=== PATIENT | female | born 1930 | race Caucasian/White ===

== ENCOUNTER 2018-02-05 23:09 | Inpatient (IN) | payer OTHER ==
--- NOTE | 2018-02-05 23:33 | PDOC ---
History of Present Illness - General History Source: Long Term Records <Axel Barroso - Last Filed: 02/06/18 00:42> - General History Source: Long Term Records Exam Limitations: Dementia - History of Present Illness Initial Comments: 02/06/18 00:00 The patient is a year old female with a significant PMH of CVA, dementia, and hyperlipidemia, and prior falls who presents to the emergency department from [facility] with right hip pain. The patient is unable to provide history secondary to dementia but she presents with imaging paperwork from [facility] which reads acutely displaced and angulated right proximal femoral diaphyseal fracture. High grade osteoarthritis of the right hip. Allergies: NKA Past surgical history: None reported Social history: No reported cigarette, alcohol, or drug use. PCP: Dr. Barrie Paris <Cliff Renae - Last Filed: 02/06/18 03:32> - General Chief Complaint: Pain Stated Complaint: HIP PAIN Time Seen by Provider: 02/05/18 23:30 Past History - Past Medical History Anemia: Yes Cardiac Disorders: (Bradycardia) CVA: Yes Dementia: Yes GI Disorders: Yes (diverticulitis) HTN: Yes Hypercholesterolemia: Yes - Surgical History Abdominal Surgery: No - Immunization History Td Vaccination: Yes TDAP Vaccination: Yes Immunization Up to Date: Yes - Suicide/Smoking/Psychosocial Hx Smoking Status: No Smoking History: Never smoked Number of Cigarettes Smoked Daily: 0 <Axel Barroso - Last Filed: 02/06/18 00:42> <Cliff Renae - Last Filed: 02/06/18 03:32> - Past Medical History Allergies/Adverse Reactions: Allergies Allergy/AdvReac Type Severity Reaction Status Date / Time No Known Allergies Allergy Verified 02/05/18 23:25 Home Medications: Ambulatory Orders Acetaminophen [Tylenol] 1,000 mg PO BID 02/05/18 Albuterol 2.5/Ipratropium 0.5 [Duoneb -] 1 neb IH QID 02/05/18 Aspirin 81 mg PO DAILY 02/05/18 Budesonide [Pulmicort 0.5 mg Nebulizer -] 1 neb NEB BID 02/05/18 Cholecalciferol (Vitamin D3) [Vitamin D3 -] 1,000 unit PO DAILY 02/05/18 Dextran 70/Hypromellose [Artificials Tears Drops] 1 drop OU BID 02/05/18 Docusate Sodium [Colace -] 300 mg PO HS 02/05/18 Ranitidine HCl [Zantac] 150 mg PO DAILY 02/05/18 Review of Systems - Review of Systems Able to Perform ROS?: No <Cliff Renae - Last Filed: 02/06/18 03:32> *Physical Exam - Physical Exam Comments: 02/06/18 00:45 GENERAL: Well developed, well nourished. Awake and alert. No acute distress. HEENT: Normocephalic, atraumatic. PERRLA, EOMI. No conjunctival pallor. Sclera are non- icteric. Moist mucous membranes. Oropharynx is clear. NECK: Supple. Full ROM. No JVD. Carotid pulses 2+ and symmetric, without bruits. No thyromegaly. No lymphadenopathy. CARDIOVASCULAR: Regular rate and rhythm. No murmurs, rubs, or gallops. Distal pulses are 2+ and symmetric. PULMONARY: No evidence of respiratory distress. Lungs clear to auscultation bilaterally. No wheezing, rales or rhonchi. ABDOMINAL: Soft. Non-tender. Non-distended. No rebound or guarding. No organomegaly. Normoactive bowel sounds. MUSCULOSKELETAL: Internal rotation of right leg. No extremity tenderness. No CVA tenderness. EXTREMITIES: No cyanosis. No clubbing. No edema. No calf tenderness. SKIN: Warm and dry. Normal capillary refill. No rashes. No jaundice. NEUROLOGICAL: Alert, awake, appropriate. Cranial nerves 2-12 intact. No deficits to light touch and temperature in face, upper extremities and lower extremities. No motor deficits in the in face, upper extremities and lower extremities. Normoreflexic in the upper and lower extremities. Normal speech. Toes are downgoing bilaterally. Gait is normal without ataxia. PSYCHIATRIC: Cooperative. Good eye contact. Appropriate mood and affect. <Cliff Renae - Last Filed: 02/06/18 03:32> Heart Score/ECG Review #1 02/06/18 03:31 Vent rate 93 bpm Normal sinus rhythm Left ventricular hypertrophy with repolarization abnormality. Abnormal ECG <Cliff Renae - Last Filed: 02/06/18 03:32> ED Treatment Course - LABORATORY CBC & Chemistry Diagram: 02/05/18 23:45 02/05/18 23:45 <Axel Barroso - Last Filed: 02/06/18 00:42> - LABORATORY CBC & Chemistry Diagram: 02/05/18 23:45 02/05/18 23:45 - ADDITIONAL ORDERS Additional order review: 02/05/18 23:45 RBC 4.13 MCV 97.0 H MCHC 34.3 RDW 13.0 MPV 8.3 Neutrophils % 78.4 D Lymphocytes % 7.4 L D Monocytes % 13.8 H Eosinophils % 0.1 D Basophils % 0.3 <Cliff Renae - Last Filed: 02/06/18 03:32> Medical Decision Making - Medical Decision Making 02/06/18 00:42 Dr. Barroso: The scribe's documentation has been prepared under my direction and personally reviewed by me in its entirery. I confirm that the note above accurately reflects all work, treatment, procedures, and medical decision making performed by me. reported from [place] pt has a right proximal femur fracture. Pt to be admitted to [facility] for evaluation and treatment <Axel Barroso - Last Filed: 02/06/18 00:42> *DC/Admit/Observation/Transfer - Discharge Dispostion Admit: Yes <Axel Barroso - Last Filed: 02/06/18 00:42> - Attestations Scribe Attestion: 02/06/18 00:00 Documentation prepared by Cliff Renae, acting as chief medical physicist for Axel Barroso DO. <Cliff Renae - Last Filed: 02/06/18 03:32> Diagnosis at time of Disposition: Femur fracture, right - Discharge Dispostion Condition at time of disposition: Stable - Referrals Referrals: Barrie Paris [Primary Care Provider] -
[2018-02-05 23:49] LABS: BASO % 0.3 % (0-2.0); EOS % 0.1 % (0-4.5); HEMOGLOBIN 13.7 GM/dL (10.7-15.3); LYMPH % 7.4 % (8-40); MCH 33.2 pg (25.7-33.7); MCHC 34.3 g/dl (32.0-36.0); MEAN PLT VOLUME 8.3 fl (7.5-11.1); MONO % 13.8 % (3.8-10.2); NEUT % 78.4 % (42.8-82.8); PLATELET COUNT 246 K/MM3 (134-434); RBC 4.13 M/mm3 (3.60-5.2); WHITE BLOOD COUNT 14.6 K/mm3 (4.0-10.0)
[2018-02-06 00:02] LABS: INR 1.05 (0.82-1.09); PROTHROMBIN TIME (PATIENT) 11.9 SEC (9.98-11.88)
[2018-02-06 00:24] LABS: ALBUMIN 2.9 g/dl (3.4-5.0); ALK PHOS 49 U/L (45-117); ANION GAP 12 (8-16); BILIRUBIN,TOTAL 0.5 mg/dL (0.2-1.0); BLOOD UREA NITROGEN 10 mg/dL (7-18); CALCIUM 9.1 mg/dL (8.5-10.1); CHLORIDE 102 mmol/L (98-107); CO2 25 mmol/L (21-32); CREATININE 0.7 mg/dL (0.55-1.02); GLUCOSE,RANDOM 165 mg/dL (74-106); POTASSIUM 4.1 mmol/L (3.5-5.1); SGOT/AST 32 U/L (15-37); SGPT/ALT 28 U/L (12-78); SODIUM 139 mmol/L (136-145); TOT PROT 6.6 g/dl (6.4-8.2)
[2018-02-06 01:12] VITALS: BMI 25.4
[2018-02-06 01:14] LABS: URINE APPEARANCE CLOUDY; URINE BILIRUBIN NEGATIVE (NEGATIVE); URINE BLOOD NEGATIVE (NEGATIVE); URINE COLOR DKYELLOW; URINE GLUCOSE (UA) NEGATIVE (NEGATIVE); URINE KETONE TRACE (NEGATIVE); URINE LEUK ESTERASE NEGATIVE (NEGATIVE); URINE NITRITE NEGATIVE (NEGATIVE); URINE PROTEIN NEGATIVE (NEGATIVE); URINE UROBILINOGEN NEGATIVE mg/dL (0.2-1.0)
[2018-02-06] MEDS ORDERED: SODIUM CHLORIDE 250 ML IV STA (01:18)
[2018-02-06] MEDS ORDERED: SODIUM CHLORIDE 1,000 ML IV SCH (02:00)
--- NOTE | 2018-02-06 02:20 | HP ---
CHIEF COMPLAINT: right femur fracture PCP: [facility] HISTORY OF PRESENT ILLNESS: This is an 87 year old female with a significant past medical history of advanced Alzheimers disease and osteoporosis who presented to the ED from [facility] with an xray report revealing right femur fracture. Unknown etiology of fracture. Pt is nonverbal at baseline. ER course was notable for: (1) Xray with R proximal femur fracture (2) Hgb 13.7, WBC 14.6 (3) Lactic acid 2.8 Recent Travel: none PAST MEDICAL HISTORY: Alzheimer's Dementia, advanced, Parkinson's disease, CVA, HTN, HLD, PVD, COPD, falls, osteoporosis, osteoarthritis, GERD, diverticulitis PAST SURGICAL HISTORY: unk-B/L knee surgical scars noted Social History: Smoking: unk Alcohol: unk Drugs: unk Family History: unk Allergies No Known Allergies Allergy (Verified 02/05/18 23:25) HOME MEDICATIONS: 3 Medication Instructions Recorded Acetaminophen [Tylenol] 1,000 mg PO BID 02/05/18 Albuterol 2.5/Ipratropium 0.5 1 neb IH QID 02/05/18 [Duoneb -] Aspirin 81 mg PO DAILY 02/05/18 Budesonide [Pulmicort 0.5 mg 1 neb NEB BID 02/05/18 Nebulizer -] Cholecalciferol (Vitamin D3) 1,000 unit PO DAILY 02/05/18 [Vitamin D3 -] Dextran 70/Hypromellose 1 drop OU BID 02/05/18 [Artificials Tears Drops] Docusate Sodium [Colace -] 300 mg PO HS 02/05/18 Ranitidine HCl [Zantac] 150 mg PO DAILY 02/05/18 REVIEW OF SYSTEMS--obtained from limited [place] chart CONSTITUTIONAL: Absent: fever, chills, diaphoresis, generalized weakness, malaise, loss of appetite, weight change HEENT: Absent: rhinorrhea, nasal congestion, throat pain, throat swelling, difficulty swallowing, mouth swelling, ear pain, eye pain, visual changes CARDIOVASCULAR: Absent: chest pain, syncope, palpitations, irregular heart rate, lightheadedness , peripheral edema RESPIRATORY: Absent: cough, shortness of breath, dyspnea with exertion, orthopnea, wheezing, stridor, hemoptysis GASTROINTESTINAL: Absent: abdominal pain, abdominal distension, nausea, vomiting, diarrhea, constipation, melena, hematochezia GENITOURINARY: Absent: dysuria, frequency, urgency, hesitancy, hematuria, flank pain, genital pain MUSCULOSKELETAL: Present: right leg shortened and externally rotated Absent: myalgia, arthralgia, joint swelling, back pain, neck pain SKIN: Absent: rash, itching, pallor HEMATOLOGIC/IMMUNOLOGIC: Absent: easy bleeding, easy bruising, lymphadenopathy, frequent infections ENDOCRINE: Absent: unexplained weight gain, unexplained weight loss, heat intolerance, cold intolerance NEUROLOGIC: Absent: headache, focal weakness or paresthesias, dizziness, unsteady gait, seizure, mental status changes, bladder or bowel incontinence PSYCHIATRIC: Absent: anxiety, depression, suicidal or homicidal ideation, hallucinations. PHYSICAL EXAMINATION Vital Signs - 24 hr 3 02/05/18 02/06/18 23:15 01:10 Temperature 99.7 F H Pulse Rate 81 Respiratory 20 Rate Blood Pressure 141/68 O2 Sat by Pulse 96 Oximetry (%) GENERAL: disoriented, unable to follow commands, in no acute distress. HEAD: Normal with no signs of trauma. EYES: eyes closed, squeeses tightly shut when attempt made to open them. Crusting noted to eyelashes. EARS, NOSE, THROAT: Ears normal, nares patent, oropharynx clear without exudates. Moist mucous membranes. NECK: Normal range of motion, supple without lymphadenopathy, JVD, or masses. LUNGS: Breath sounds equal, clear to auscultation bilaterally. No wheezes, and no crackles. No accessory muscle use. HEART: Regular rate and rhythm, normal S1 and S2 without murmur, rub or gallop. ABDOMEN: Soft, nontender, not distended, normoactive bowel sounds, no guarding, no rebound, no masses. No hepatomegaly or splenomegaly. MUSCULOSKELETAL: Normal range of motion at all joints. No bony deformities or tenderness. No CVA tenderness. right leg shortened and externally rotated UPPER EXTREMITIES: 2+ pulses, warm, well-perfused. No cyanosis. No clubbing. No peripheral edema. LOWER EXTREMITIES: 2+ pulses, warm, well-perfused. No calf tenderness. No peripheral edema. NEUROLOGICAL: Cranial nerves II-XII intact. Normal speech. Normal gait. PSYCHIATRIC: Cooperative. Good eye contact. Appropriate mood and affect. SKIN: Warm, dry, normal turgor, no lesions noted, normal capillary refill. right inframammary fold noted with erythematous rash Laboratory Results - last 24 hr 3 02/05/18 02/05/18 02/05/18 23:40 23:45 23:45 WBC 14.6 H D RBC 4.13 Hgb 13.7 Hct 40.0 MCV 97.0 H MCH 33.2 MCHC 34.3 RDW 13.0 Plt Count 246 D MPV 8.3 Neutrophils % 78.4 D Lymphocytes % 7.4 L D Monocytes % 13.8 H Eosinophils % 0.1 D Basophils % 0.3 PT with INR 11.90 H INR 1.05 Sodium Potassium Chloride Carbon Dioxide Anion Gap BUN Creatinine Creat Clearance w eGFR Random Glucose Lactic Acid 2.8 H* Calcium Total Bilirubin AST ALT Alkaline Phosphatase Total Protein Albumin Urine Color Urine Appearance Urine pH Ur Specific Lykens Urine Protein Urine Glucose (UA) Urine Ketones Urine Blood Urine Nitrite Urine Bilirubin Urine Urobilinogen Ur Leukocyte Esterase Blood Type Antibody Screen 3 02/05/18 02/05/18 02/06/18 23:45 23:50 01:05 WBC RBC Hgb Hct MCV MCH MCHC RDW Plt Count MPV Neutrophils % Lymphocytes % Monocytes % Eosinophils % Basophils % PT with INR INR Sodium 139 Potassium 4.1 Chloride 102 Carbon Dioxide 25 Anion Gap 12 BUN 10 Creatinine 0.7 Creat Clearance w eGFR > 60 Random Glucose 165 H Lactic Acid Calcium 9.1 Total Bilirubin 0.5 D AST 32 ALT 28 Alkaline Phosphatase 49 Total Protein 6.6 Albumin 2.9 L Urine Color Dkyellow Urine Appearance Cloudy Urine pH 5.0 Ur Specific Lyk[place] 1.020 Urine Protein Negative Urine Glucose (UA) Negative Urine Ketones Trace H Urine Blood Negative Urine Nitrite Negative Urine Bilirubin Negative Urine Urobilinogen Negative Ur Leukocyte Esterase Negative Blood Type A POSITIVE Antibody Screen Negative Radiology reports right hip and pelvis official read pending, Proximal humerus fracture noted with dislocation CXR-official read pending, no obvious infiltrates or effusions noted by me ASSESSMENT/PLAN: 87yF with PMH Alzheimer's Dementia, advanced, Parkinson's disease, CVA, HTN, HLD , PVD, COPD, falls, osteoporosis, osteoarthritis, GERD, diverticulitis presented to the ED with right femur fracture. Right femur fracture - ortho consult in am - tylenol standing as pt unable to make needs known - NPO for now - start heparin for DVT PPX if not going to OR - hold ASA lactic acidosis/leukocytosis - NS bolus 250cc x 1 then 100cc/hr - repeat lactic acid in am leukocytosis - likely reactive due to fracture, repeat in am COPD - Cont home duonebs and pulmicort HTN/HLD - off all meds, monitor BP GERD - cont zantac DVT PPX - start heparin if not going to OR FEN - NS 250mL bolus x 1 then 100cc/hr - bmp in am - NPO for now, puree diet/thin liquids if not going to OR right away. Dispo: Pt currently requires inpatient management of her emergent condition. Visit type - Emergency Visit Emergency Visit: Yes ED Registration Date: 02/05/18 Care time: The patient presented to the Emergency Department on the above date and was hospitalized for further evaluation of their emergent condition. - New Patient This patient is new to me today: Yes Date on this admission: 02/06/18 - Critical Care Critical Care patient: No Hospitalist Screening - Colonoscopy Questionnaire Colonoscopy Questionnaire: Colonoscopy Questionnaire - Patient: 50 - 75 years old and never had a screening colonoscopy: No History of colon or rectal polyps, or CA: No History of IBD, Crohn's disease or UC: No History of abdominal radiation therapy as a child: No - Relative: 1 with colon or rectal CA, or polyps at age 60 or younger: Unknown Colon or rectal CA diagnosed at age 45 or younger: Unknown Multiple relatives with colon or rectal CA: Unknown - Outcome: Screening Result: Negative Screen
[2018-02-06] MEDS: ACETAMINOPHEN 325 MG TABLET (FP) PO SCH ×5 (03:02→21:54)
[2018-02-06 07:34] LABS: ANION GAP 12 (8-16); BLOOD UREA NITROGEN 9 mg/dL (7-18); CALCIUM 8.3 mg/dL (8.5-10.1); CHLORIDE 105 mmol/L (98-107); CO2 25 mmol/L (21-32); CREATININE 0.6 mg/dL (0.55-1.02); GLUCOSE,RANDOM 138 mg/dL (74-106); PHOSPHOROUS 2.9 mg/dL (2.5-4.9); POTASSIUM 4.2 mmol/L (3.5-5.1); SODIUM 142 mmol/L (136-145)
[2018-02-06] MEDS ORDERED: PT OWN MED DRAWER 7, Y5N ONE ×3 (08:06→21:34)
[2018-02-06] MEDS: ALBUTEROL SO4 2.5/IPRATROPIUM 0.5 INH SOL 3 ML VIAL.NEB. NEB SCH ×4 (08:07→22:10)
--- NOTE | 2018-02-06 09:31 | CONSULT ---
Consult - text type - Consultation Consultation Note: FULL CONSULT DICTATED IMP:RIGHT SUBTROCH FX ABOUT A TKR WITH A SHORT BRODY PLAN: --> OR FOR ORIF. I WILL DISCUSS CASE WITH PROXY.
[2018-02-06] MEDS: BUDESONIDE 0.5 MG/2 ML INH SUSP VIAL NEB SCH ×2 (10:30→22:10)
--- NOTE | 2018-02-06 10:49 | EKG ---
Test Reason : Blood Pressure : / mmHG Vent. Rate : 093 BPM Atrial Rate : 093 BPM P-R Int : 178 ms QRS Dur : 094 ms QT Int : 344 ms P-R-T Axes : 042 002 129 degrees QTc Int : 427 ms NORMAL SINUS RHYTHM LEFT VENTRICULAR HYPERTROPHY WITH REPOLARIZATION ABNORMALITY ABNORMAL ECG WHEN COMPARED WITH ECG OF 15-MAR-2013 19:22, VENT. RATE HAS INCREASED BY 36 BPM NONSPECIFIC T WAVE ABNORMALITY NO LONGER EVIDENT IN ANTERIOR LEADS T WAVE INVERSION NOW EVIDENT IN LATERAL LEADS Confirmed by JENNIFER ROGEL, CAIT ([id number]) on 02/06/2018 10:48:57 AM Referred By: Confirmed By:CAIT RODRIGUEZ MD
[2018-02-06] MEDS: RANITIDINE HCL 150 MG TABLET (FP) PO SCH (10:58)
[2018-02-06] MEDS: CHOLECALCIFEROL (VITAMIN D3) 1,000 UNIT TABLET (FP) PO SCH (10:58)
[2018-02-06] MEDS: NYSTATIN POWDER 100,000 UNITS/GM - 15 GM TOPICAL POWDER TP SCH ×2 (10:59→21:54)
[2018-02-06] MEDS: ARTIFICIAL TEARS (POLYVINYL ALCOHOL 1.4%) OPTH DROPS OU SCH ×2 (11:01→21:53)
[2018-02-06] MEDS ORDERED: oxyCODONE HCL 5 MG TABLET PO PRN (11:27)
--- NOTE | 2018-02-06 11:27 | PN ---
Progress Note (short form) - Note Progress Note: Events noted Pt admitted from [facility] for fracture right hip Vital Signs - 24 hr 02/05/18 02/06/18 02/06/18 23:15 01:10 02:00 Temperature 99.7 F H 99.5 F Pulse Rate 81 105 H Pulse Rate [ Right] Respiratory 20 18 Rate Blood Pressure 141/68 132/59 Blood Pressure [Right Calf] O2 Sat by Pulse 96 96 Oximetry (%) 02/06/18 02/06/18 02/06/18 02:42 03:30 05:42 Temperature 99.5 F 98.3 F Pulse Rate 113 H 87 Pulse Rate [ 92 H Right] Respiratory 16 18 20 Rate Blood Pressure 132/59 112/71 Blood Pressure 105/66 [Right Calf] O2 Sat by Pulse 95 Oximetry (%) Current Medications Generic Name Dose Route Start Last Admin Trade Name Freq PRN Reason Stop Dose Admin Acetaminophen 650 mg 02/06/18 01:45 02/06/18 05:51 Tylenol - PO Not Given TID BRANDO Albuterol/Ipratropium 1 amp 02/06/18 08:00 02/06/18 08:07 Duoneb - NEB 1 amp RQID BRANDO Administration Artificial Tears 1 drop 02/06/18 10:00 02/06/18 11:01 Artificial Tears OU 1 drop BID BRANDO Administration Budesonide 1 amp 02/06/18 10:00 02/06/18 10:30 Pulmicort 0.5 Mg Nebulizer - NEB 1 amp BID BRANDO Administration Cholecalciferol 1,000 unit 02/06/18 10:00 02/06/18 10:58 Vitamin D3 - PO Not Given DAILY BRANDO Docusate Sodium 300 mg 02/06/18 22:00 Colace - PO HS BRANDO Sodium Chloride 1,000 mls @ 100 mls/hr 02/06/18 02:00 02/06/18 02:30 Normal Saline - IV 100 mls/hr ASDIR BRANDO Administration Morphine Sulfate 1 mg 02/06/18 01:24 Morphine Sulfate IVPUSH Q4H PRN PAIN LEVEL 7 - 10 Nystatin 1 applic 02/06/18 10:00 02/06/18 10:59 Nystop Powder - TP 1 applic BID BRANDO Administration Oxycodone HCl 5 mg 02/06/18 11:27 Roxicodone - PO Q6H PRN PAIN LEVEL 6-10 Ranitidine HCl 150 mg 02/06/18 10:00 02/06/18 10:58 Zantac - PO Not Given DAILY [facility] Laboratory Results - last 24 hr 02/05/18 02/05/18 02/05/18 23:40 23:45 23:45 WBC 14.6 H D RBC 4.13 Hgb 13.7 Hct 40.0 MCV 97.0 H MCH 33.2 MCHC 34.3 RDW 13.0 Plt Count 246 D MPV 8.3 Neutrophils % 78.4 D Lymphocytes % 7.4 L D Monocytes % 13.8 H Eosinophils % 0.1 D Basophils % 0.3 PT with INR 11.90 H INR 1.05 Sodium Potassium Chloride Carbon Dioxide Anion Gap BUN Creatinine Creat Clearance w eGFR Random Glucose Lactic Acid 2.8 H* Calcium Phosphorus Magnesium Total Bilirubin AST ALT Alkaline Phosphatase Total Protein Albumin Urine Color Urine Appearance Urine pH Ur Specific Maxwell Urine Protein Urine Glucose (UA) Urine Ketones Urine Blood Urine Nitrite Urine Bilirubin Urine Urobilinogen Ur Leukocyte Esterase Blood Type Antibody Screen 02/05/18 02/05/18 02/06/18 23:45 23:50 01:05 WBC RBC Hgb Hct MCV MCH MCHC RDW Plt Count MPV Neutrophils % Lymphocytes % Monocytes % Eosinophils % Basophils % PT with INR INR Sodium 139 Potassium 4.1 Chloride 102 Carbon Dioxide 25 Anion Gap 12 BUN 10 Creatinine 0.7 Creat Clearance w eGFR > 60 Random Glucose 165 H Lactic Acid Calcium 9.1 Phosphorus Magnesium Total Bilirubin 0.5 D AST 32 ALT 28 Alkaline Phosphatase 49 Total Protein 6.6 Albumin 2.9 L Urine Color Dkyellow Urine Appearance Cloudy Urine pH 5.0 Ur Specific Maxwell 1.020 Urine Protein Negative Urine Glucose (UA) Negative Urine Ketones Trace H Urine Blood Negative Urine Nitrite Negative Urine Bilirubin Negative Urine Urobilinogen Negative Ur Leukocyte Esterase Negative Blood Type A POSITIVE Antibody Screen Negative 02/06/18 02/06/18 02/06/18 02:05 06:30 06:30 WBC RBC Hgb Hct MCV MCH MCHC RDW Plt Count MPV Neutrophils % Lymphocytes % Monocytes % Eosinophils % Basophils % PT with INR INR Sodium 142 Potassium 4.2 Chloride 105 Carbon Dioxide 25 Anion Gap 12 BUN 9 Creatinine 0.6 Creat Clearance w eGFR Random Glucose 138 H Lactic Acid 2.6 H* 2.0 Calcium 8.3 L Phosphorus 2.9 Magnesium 2.0 Total Bilirubin AST ALT Alkaline Phosphatase Total Protein Albumin Urine Color Urine Appearance Urine pH Ur Specific Maxwell Urine Protein Urine Glucose (UA) Urine Ketones Urine Blood Urine Nitrite Urine Bilirubin Urine Urobilinogen Ur Leukocyte Esterase Blood Type Antibody Screen S1 S2 RRR Sleepy Clear Abd- soft , NT Rt leg shortened,turned outwards A/P Dementia- Alzhemer's COPD Fracture right hip -- continue with nebs -- spoke with son-- she is baseline-- sleepy, dementia, bedbound-- he agrees for surgery for pain control -- check Echo -- Cardiology eval for clearance -- Heparin sc for DVT Px
--- NOTE | 2018-02-06 13:26 | CONS ---
DATE OF CONSULTATION: 02/06/2018 HISTORY OF PRESENT ILLNESS: Patient is an 87-year-old demented with severe OMS patient found to have a short and externally rotated femur in the halfway. Was transferred to the hospital. Patient is DNR. PAST MEDICAL HISTORY: Significant for bilateral total knee replacements and revisions, also right reverse shoulder replacement. Patient is a complete nonambulator and follows no commands. PHYSICAL EXAMINATION: Extremities: She has a great deal of pain with passive range of motion of her right hip. Good motion in the ankle and toes. Otherwise neurovascularly intact. Calf is soft, nontender. Mild swelling of the right thigh. IMAGING: X-rays revealed a right subtrochanteric femur fracture above a revision total knee replacement with a small stem on the femoral component. IMPRESSION: Right subtrochanteric fracture above a stemmed total knee replacement. RECOMMENDATIONS: Risks, benefits, alternatives discussed with sister and with son. They have agreed to go forward with operative intervention, but they want minimalistic procedure as possible. I therefore recommend that the shortest long Gamma nail to be applied to fixate the fracture. They realize that this could allow a stress fracture between the tip of the femoral nail and the upper tip of the total knee replacement. Ideally, I would bridge this with a bridging plate to decrease the stress riser there. However, family again wants the minimalistic procedure, just wants whatever we can do now. If it breaks at a later date, we will have to deal with it then. I therefore will book that procedure in the upcoming days. Patient will be booked once medically optimized. GIORGIO WATT M.D. [id number]
--- NOTE | 2018-02-06 16:13 | CON.CARD ---
Consult Consult Specialty:: Cardiology Referred by:: Dr. Watson Reason for Consultation:: Preop cardiac evaluation prior to hip surgery - History of Present Illness Chief Complaint: Hip fracture History of Present Illness: 87 year old woman with a h/o advanced dementia, multiple prior "mini strokes" as per pts son, COPD, bedbound, admitted from [place] for R hip fracture. Pt is planned for surgical stabilization for pain reduction. Pt seen and examined today. Pt minimally responsive. opens eyes to voice. does not follow commands, no coherent speech. moaning. no reported history of c/o chest pain. Pt does have baseline intermittent sob due to COPD. History was obtained from the chart as well as from pts son Trevor over the phone. - History Source History Provided By: Family Member, Medical Record Limitations to Obtaining History: Dementia - Past Medical History OSTEOPATHIC PHYSICIAN: Yes: Alzheimer's, CVA, TIA Pulmonary: Yes: COPD ...: No - Alcohol/Substance Use Hx Alcohol Use: No History of Substance Use: reports: None - Smoking History Smoking history: Never smoked Aproximately how many cigarettes per day: 0 - Social History Usual Living Arrangement: Detention ADL: Support Services History of Recent Travel: No Home Medications - Allergies Allergies/Adverse Reactions: Allergies Allergy/AdvReac Type Severity Reaction Status Date / Time No Known Allergies Allergy Verified 02/05/18 23:25 - Home Medications Home Medications: Ambulatory Orders Acetaminophen [Tylenol] 1,000 mg PO BID 02/05/18 Albuterol 2.5/Ipratropium 0.5 [Duoneb -] 1 neb IH QID 02/05/18 Aspirin 81 mg PO DAILY 02/05/18 Budesonide [Pulmicort 0.5 mg Nebulizer -] 1 neb NEB BID 02/05/18 Cholecalciferol (Vitamin D3) [Vitamin D3 -] 1,000 unit PO DAILY 02/05/18 Dextran 70/Hypromellose [Artificials Tears Drops] 1 drop OU BID 02/05/18 Docusate Sodium [Colace -] 300 mg PO HS 02/05/18 Ranitidine HCl [Zantac] 150 mg PO DAILY 02/05/18 Family Disease History - Family Disease History Family History: Unremarkable Review of Systems - Review of Systems Constitutional: reports: Other (bedbound, dementia) Eyes: reports: No Symptoms HENT: reports: No Symptoms Neck: reports: No Symptoms Cardiovascular: reports: Shortness of Breath Respiratory: reports: SOB Gastrointestinal: reports: No Symptoms Genitourinary: reports: No Symptoms Musculoskeletal: reports: Decreased ROM, Extremity Pain, Joint Pain, Muscle Weakness Neurological: reports: Confusion, Weakness - Risk Factors Known Risk Factors: Yes: Age, Other (multiple prior CVA) Vital Signs: Vital Signs Temperature 98.8 F 02/06/18 14:27 Pulse Rate 83 02/06/18 14:27 Respiratory Rate 20 02/06/18 09:00 Blood Pressure 125/65 02/06/18 14:27 O2 Sat by Pulse Oximetry (%) 95 02/06/18 09:00 Constitutional: Yes: No Distress, Calm Eyes: Yes: Conjunctiva Clear HENT: Yes: Atraumatic, Normocephalic Neck: Yes: Supple Respiratory: Yes: Regular, Diminished, Rhonchi. No: Rales, SOB, Wheezes Gastrointestinal: Yes: Normal Bowel Sounds, Soft. No: Distention, Tenderness Cardiovascular: Yes: Regular Rate and Rhythm. No: Bradycardia, Tachycardia, Pulse Irregular, Gallop, Rub, Varicosities JVD: No Carotid Bruit: No PMI: Non-Displaced Heart Sounds: Yes: S1, S2. No: Split S2, S3, S4, Clicks, Gallop, Rub, Bruit Murmur: Yes: Systolic Murmur, Grade 2. No: Diastolic Murmur Musculoskeletal: Yes: Joint Stiffness, Muscle Weakness Extremities: Yes: Internal Rotation Edema: LLE: Trace, RLE: Trace Peripheral Pulses WNL: Yes Neurological: No: Alert, Oriented Psychiatric: No: Alert, Oriented - Other Data Labs, Other Data: CBC, BMP 02/05/18 23:45 02/06/18 06:30 INR, PTT INR 1.05 (0.82-1.09) 02/05/18 23:45 EKG-NSR 93bpm, LVH with repolarization abnl, nonspecific St abnl, slight ST depression V5, V6,I, aVL Echo: Report Reviewed Imaging - Results Chest X-ray: Report Reviewed, Image Reviewed EKG: Report Reviewed, Image Reviewed Other: Report Reviewed, Image Reviewed Assessment/Plan 87 year old woman with a h/o advanced dementia, multiple prior "mini strokes" as per pts son, COPD, bedbound, admitted from [place] for R hip fracture. Pt is planned for surgical stabilization for pain reduction. Pt seen and examined today. Pt minimally responsive. opens eyes to voice. does not follow commands, no coherent speech. moaning. no reported history of c/o chest pain. Pt does have baseline intermittent sob due to COPD. History was obtained from the chart as well as from pts son Trevor over the phone. Perioperative cardiac risk stratification -Extensive discussion held with pts son Trevor over the phone today. -Pt would be considered a high risk patient for procedures based on age, dementia, multiple prior CVA's and COPD however at this time there is no current absolute cardiac contraindication to going through with the procedure. -EKG shows no acute abnormalities, BP is well controlled without medication, Echo showed grossly normal LV systolic function and no significant valvular abnormalities. There is no additional cardiac testing at this point that would minimize her risk. There is also insufficient time to start and titrate a bblocker and blood pressure is well controlled without medication, would risk intraoperative hypotension to initiate therapy at this time. -Discussed with Trevor that while she is of risk for cardiac or neurologic complications with surgery, the purpose of the surgery is to relieve the significant pain that she is in and improve her quality of life and therefore it would be reasonable to proceed with close intraoperative monitoring. -Dr. Gaxiola's consult appreciated plan is for minimally invasive and minimal surgical time with gamma nail stabilization. -If possible would attempt to avoid large BP shifts intraoperatively -Pt can be monitored on telemetry postoperatively
[2018-02-06] MEDS: SODIUM CHLORIDE 1,000 ML IV SCH ×2 (16:31→21:55)
[2018-02-06] MEDS: morphine SULFATE 4 MG/ML VIAL IVPUSH PRN (16:38)
[2018-02-06] MEDS: DOCUSATE SODIUM 100 MG CAPSULE (FP) PO SCH (21:54)
[2018-02-06] MEDS: HEPARIN NA (PORCINE) 5,000 UNITS/ML 1ML VIAL SQ SCH (21:55)
[2018-02-07] MEDS: ACETAMINOPHEN 325 MG TABLET (FP) PO SCH ×3 (06:35→21:59)
[2018-02-07] MEDS: ALBUTEROL SO4 2.5/IPRATROPIUM 0.5 INH SOL 3 ML VIAL.NEB. NEB SCH ×4 (07:57→20:20)
[2018-02-07 08:17] LABS: BASO % 0.6 % (0-2.0); EOS % 0.9 % (0-4.5); HEMATOCRIT 28.5 % (32.4-45.2); HEMOGLOBIN 9.7 GM/dL (10.7-15.3); LYMPH % 15.8 % (8-40); MCH 33.3 pg (25.7-33.7); MCHC 33.9 g/dl (32.0-36.0); MEAN CELL VOLUME 98.1 fl (80-96); MEAN PLT VOLUME 8.2 fl (7.5-11.1); NEUT % 64.7 % (42.8-82.8); PLATELET COUNT 163 K/MM3 (134-434); RBC 2.91 M/mm3 (3.60-5.2); RDW 13.2 % (11.6-15.6); WHITE BLOOD COUNT 11.5 K/mm3 (4.0-10.0)
[2018-02-07] MEDS: SODIUM CHLORIDE 1,000 ML IV SCH ×2 (09:46→10:40)
[2018-02-07] MEDS: BUDESONIDE 0.5 MG/2 ML INH SUSP VIAL NEB SCH (09:52)
--- NOTE | 2018-02-07 10:22 | PN ---
Progress Note (short form) - Note Progress Note: Pt seen and examined. She has severe dementia. Appears comfortable. RLE is flexed at the hip and the knee. 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 Cardiology note seen. Plan Right hip/femur IM nail/Gamma Nail surgery sunday. Rec NPO after midnight tonight Final medical clearance Hold any anticoagulants
[2018-02-07] MEDS ORDERED: PT OWN MED DRAWER 7, Y5N ONE (10:23)
[2018-02-07] MEDS: HEPARIN NA (PORCINE) 5,000 UNITS/ML 1ML VIAL SQ SCH ×2 (10:38→21:59)
[2018-02-07] MEDS: ARTIFICIAL TEARS (POLYVINYL ALCOHOL 1.4%) OPTH DROPS OU SCH ×2 (10:39→21:59)
[2018-02-07] MEDS: NYSTATIN POWDER 100,000 UNITS/GM - 15 GM TOPICAL POWDER TP SCH ×2 (10:39→22:00)
[2018-02-07] MEDS: CHOLECALCIFEROL (VITAMIN D3) 1,000 UNIT TABLET (FP) PO SCH (10:40)
[2018-02-07] MEDS: RANITIDINE HCL 150 MG TABLET (FP) PO SCH (10:40)
--- NOTE | 2018-02-07 11:50 | PN ---
Progress Note (short form) - Note Progress Note: spoke with Dr Jon Pt is comfortable sleepy spoke with son earlier-- he would rather have the pt be sleepy and not in pain Vital Signs - 24 hr 02/06/18 02/06/18 02/06/18 14:27 21:00 21:59 Temperature 98.8 F 99.7 F H Pulse Rate 83 96 H Respiratory 20 20 Rate Blood Pressure 125/65 147/71 O2 Sat by Pulse 95 Oximetry (%) 02/07/18 02/07/18 05:36 08:00 Temperature 99.1 F 98.8 F Pulse Rate 101 H 90 Respiratory 20 20 Rate Blood Pressure 123/60 116/55 O2 Sat by Pulse 99 Oximetry (%) Current Medications Generic Name Dose Route Start Last Admin Trade Name Freq PRN Reason Stop Dose Admin Acetaminophen 650 mg 02/06/18 01:45 02/07/18 06:35 Tylenol - PO 650 mg TID BRANDO Administration Albuterol/Ipratropium 1 amp 02/06/18 08:00 02/07/18 11:16 Duoneb - NEB 1 amp RQID BRANDO Administration Artificial Tears 1 drop 02/06/18 10:00 02/07/18 10:39 Artificial Tears OU 1 drop BID BRANDO Administration Budesonide 1 amp 02/06/18 10:00 02/07/18 09:52 Pulmicort 0.5 Mg Nebulizer - NEB 1 amp BID BRANDO Administration Cholecalciferol 1,000 unit 02/06/18 10:00 02/07/18 10:40 Vitamin D3 - PO Not Given DAILY BRANDO Docusate Sodium 300 mg 02/06/18 22:00 02/06/18 21:54 Colace - PO 300 mg HS BRANDO Administration Heparin Sodium (Porcine) 5,000 unit 02/06/18 22:00 02/07/18 10:38 Heparin - SQ 5,000 unit BID BRANDO Administration Sodium Chloride 1,000 mls @ 80 mls/hr 02/06/18 11:31 02/07/18 10:40 Normal Saline - IV 80 mls/hr ASDIR BRANDO Administration Ceftriaxone Sodium 1 gm/ 50 mls @ 100 mls/hr 02/07/18 12:00 Dextrose IVPB DAILY BRANDO Morphine Sulfate 1 mg 02/06/18 01:24 02/06/18 16:38 Morphine Sulfate IVPUSH 1 mg Q4H PRN Administration PAIN LEVEL 7 - 10 Nystatin 1 applic 02/06/18 10:00 02/07/18 10:39 Nystop Powder - TP 1 applic BID BRANDO Administration Oxycodone HCl 5 mg 02/06/18 11:27 Roxicodone - PO Q6H PRN PAIN LEVEL 6-10 Ranitidine HCl 150 mg 02/06/18 10:00 02/07/18 10:40 Zantac - PO Not Given DAILY [facility] Laboratory Results - last 24 hr 02/07/18 07:35 WBC 11.5 H RBC 2.91 L D Hgb 9.7 L D Hct 28.5 L D MCV 98.1 H MCH 33.3 MCHC 33.9 RDW 13.2 Plt Count 163 D MPV 8.2 Neutrophils % 64.7 Lymphocytes % 15.8 D Monocytes % 18.0 H Eosinophils % 0.9 D Basophils % 0.6 S1 S2 RRR Sleepy Clear Abd- soft , NT Rt leg shortened,turned outwards A/P Dementia- Alzhemer's COPD Fracture right hip h/o TIA UTI -- continue with nebs -- spoke with son-- she is baseline-- sleepy, dementia, bedbound-- he agrees for surgery for pain control -- Echo noted -- Cardiology eval for clearance noted -- Heparin sc for DVT Px -- start antibiotics for positive urine cultures -- pt is cleared for surgery -- she will need post op tele monitoring
[2018-02-07] MEDS ORDERED: DEXTROSE 5%-WATER - 50 ML IVPB ONE (12:49)
[2018-02-07] MEDS ORDERED: cefTRIAXone SODIUM 1 GM VIAL ONE (12:49)
[2018-02-07] MEDS: CEFTRIAXONE 1 GM in DEXTROSE 5%-WATER - 50 ML IVPB SCH (12:57)
[2018-02-07] MEDS: morphine SULFATE 4 MG/ML VIAL IVPUSH PRN (12:57)
--- NOTE | 2018-02-07 13:20 | PN ---
Progress Note, Physician History of Present Illness: seen and examined today in [facility]. no overnight events. no new complaints. - Current Medication List Current Medications: Active Medications Acetaminophen (Tylenol -) 650 mg PO TID [facility] Last Admin: 02/07/18 06:35 Dose: 650 mg Albuterol/Ipratropium (Duoneb -) 1 amp NEB RQID [facility] Last Admin: 02/07/18 11:16 Dose: 1 amp Artificial Tears (Artificial Tears) 1 drop OU BID [facility] Last Admin: 02/07/18 10:39 Dose: 1 drop Budesonide (Pulmicort 0.5 Mg Nebulizer -) 1 amp NEB BID [facility] Last Admin: 02/07/18 09:52 Dose: 1 amp Cholecalciferol (Vitamin D3 -) 1,000 unit PO DAILY [facility] Last Admin: 02/07/18 10:40 Dose: Not Given Docusate Sodium (Colace -) 300 mg PO HS [facility] Last Admin: 02/06/18 21:54 Dose: 300 mg Heparin Sodium (Porcine) (Heparin -) 5,000 unit SQ BID [facility] Last Admin: 02/07/18 10:38 Dose: 5,000 unit Sodium Chloride (Normal Saline -) 1,000 mls @ 80 mls/hr IV ASDIR [facility] Last Admin: 02/07/18 10:40 Dose: 80 mls/hr Ceftriaxone Sodium 1 gm/ (Dextrose) 50 mls @ 100 mls/hr IVPB DAILY [facility] Last Admin: 02/07/18 12:57 Dose: 100 mls/hr Morphine Sulfate (Morphine Sulfate) 1 mg IVPUSH Q4H PRN PRN Reason: PAIN LEVEL 7 - 10 Last Admin: 02/07/18 12:57 Dose: 1 mg Nystatin (Nystop Powder -) 1 applic TP BID [facility] Last Admin: 02/07/18 10:39 Dose: 1 applic Oxycodone HCl (Roxicodone -) 5 mg PO Q6H PRN PRN Reason: PAIN LEVEL 6-10 Ranitidine HCl (Zantac -) 150 mg PO DAILY [facility] Last Admin: 02/07/18 10:40 Dose: Not Given - Objective Vital Signs: Vital Signs Temperature 98.8 F 02/07/18 08:00 Pulse Rate 90 02/07/18 08:00 Respiratory Rate 20 02/07/18 08:00 Blood Pressure 116/55 02/07/18 08:00 O2 Sat by Pulse Oximetry (%) 99 02/07/18 08:00 Constitutional: Yes: No Distress, Calm HENT: Yes: Atraumatic, Normocephalic Cardiovascular: Yes: Regular Rate and Rhythm, S1, S2. No: Bradycardia, Tachycardia, Pulse Irregular, Bruit, JVD, Gallop, Murmur, Rub, S3, S4, Varicosities Respiratory: Yes: Regular. No: Rales, Rhonchi, Wheezes Gastrointestinal: Yes: Normal Bowel Sounds, Soft. No: Distention, Tenderness Peripheral Pulses WNL: Yes Neurological: No: Alert, Oriented Psychiatric: No: Alert, Oriented Labs: CBC, BMP 02/07/18 07:35 02/06/18 06:30 INR, PTT INR 1.05 (0.82-1.09) 02/05/18 23:45 - ....Imaging Chest X-ray: Report Reviewed, Image Reviewed EKG: Report Reviewed, Image Reviewed Other: Report Reviewed, Image Reviewed Assessment/Plan 87 year old woman with a h/o advanced dementia, multiple prior "mini strokes" as per pts son, COPD, bedbound, [place] [facility] [place] [facility] [place]. Pt is planned for surgical stabilization for pain reduction. Pt seen and examined today. Pt minimally responsive. opens eyes to voice. does not follow commands, no coherent speech. moaning. no reported history of c/o chest pain. Pt does have baseline intermittent sob due to COPD. History was obtained from the chart as well as from pts son Trevor over the phone. Perioperative cardiac risk stratification -see note yesterday for preop evaluation -no change today. BP remains controlled -Pt can be monitored on telemetry postoperatively for 24 hours then return to med surg if no events
[2018-02-07] MEDS: DOCUSATE SODIUM 100 MG CAPSULE (FP) PO SCH (21:59)
[2018-02-08] MEDS: ACETAMINOPHEN 325 MG TABLET (FP) PO SCH ×3 (06:32→22:01)
[2018-02-08] MEDS: ALBUTEROL SO4 2.5/IPRATROPIUM 0.5 INH SOL 3 ML VIAL.NEB. NEB SCH ×3 (07:40→20:30)
[2018-02-08 07:58] LABS: BASO % 0.5 % (0-2.0); EOS % 1.8 % (0-4.5); HEMATOCRIT 25.4 % (32.4-45.2); HEMOGLOBIN 8.7 GM/dL (10.7-15.3); LYMPH % 13.2 % (8-40); MCH 33.6 pg (25.7-33.7); MCHC 34.4 g/dl (32.0-36.0); MEAN CELL VOLUME 97.6 fl (80-96); MONO % 17.1 % (3.8-10.2); NEUT % 67.4 % (42.8-82.8); PLATELET COUNT 142 K/MM3 (134-434); RDW 13.3 % (11.6-15.6); WHITE BLOOD COUNT 9.7 K/mm3 (4.0-10.0)
[2018-02-08 08:28] LABS: ANION GAP 5 (8-16); BLOOD UREA NITROGEN 5 mg/dL (7-18); CALCIUM 7.5 mg/dL (8.5-10.1); CHLORIDE 110 mmol/L (98-107); CO2 29 mmol/L (21-32); CREATININE 0.3 mg/dL (0.55-1.02); GLUCOSE,RANDOM 108 mg/dL (74-106); POTASSIUM 3.8 mmol/L (3.5-5.1); SODIUM 144 mmol/L (136-145)
[2018-02-08] MEDS ORDERED: DEXTROSE 5%-WATER - 50 ML IVPB ONE (08:55)
[2018-02-08] MEDS ORDERED: cefTRIAXone SODIUM 1 GM VIAL ONE (08:55)
[2018-02-08] MEDS: ARTIFICIAL TEARS (POLYVINYL ALCOHOL 1.4%) OPTH DROPS OU SCH ×3 (08:58→22:02)
[2018-02-08] MEDS: CEFTRIAXONE 1 GM in DEXTROSE 5%-WATER - 50 ML IVPB SCH (08:59)
[2018-02-08] MEDS: NYSTATIN POWDER 100,000 UNITS/GM - 15 GM TOPICAL POWDER TP SCH ×2 (08:59→22:02)
[2018-02-08] MEDS: HEPARIN NA (PORCINE) 5,000 UNITS/ML 1ML VIAL SQ SCH (09:03)
[2018-02-08] MEDS: RANITIDINE HCL 150 MG TABLET (FP) PO SCH (09:04)
[2018-02-08] MEDS: CHOLECALCIFEROL (VITAMIN D3) 1,000 UNIT TABLET (FP) PO SCH (09:04)
--- NOTE | 2018-02-08 09:13 | PN ---
Progress Note, Physician Chief Complaint: seen and examined at bedside, son there No acute events - Current Medication List Current Medications: Active Medications Acetaminophen (Tylenol -) 650 mg PO TID [facility] Last Admin: 02/08/18 06:32 Dose: Not Given Albuterol/Ipratropium (Duoneb -) 1 amp NEB RQID [facility] Last Admin: 02/08/18 07:40 Dose: 1 amp Artificial Tears (Artificial Tears) 1 drop OU BID [facility] Last Admin: 02/08/18 09:03 Dose: Not Given Budesonide (Pulmicort 0.5 Mg Nebulizer -) 1 amp NEB BID [facility] Last Admin: 02/07/18 09:52 Dose: 1 amp Cholecalciferol (Vitamin D3 -) 1,000 unit PO DAILY [facility] Last Admin: 02/08/18 09:04 Dose: Not Given Docusate Sodium (Colace -) 300 mg PO HS [facility] Last Admin: 02/07/18 21:59 Dose: Not Given Heparin Sodium (Porcine) (Heparin -) 5,000 unit SQ BID [facility] Last Admin: 02/08/18 09:03 Dose: Not Given Sodium Chloride (Normal Saline -) 1,000 mls @ 80 mls/hr IV ASDIR [facility] Last Admin: 02/07/18 10:40 Dose: 80 mls/hr Ceftriaxone Sodium 1 gm/ (Dextrose) 50 mls @ 100 mls/hr IVPB DAILY [facility] Last Admin: 02/08/18 08:59 Dose: 100 mls/hr Morphine Sulfate (Morphine Sulfate) 1 mg IVPUSH Q4H PRN PRN Reason: PAIN LEVEL 7 - 10 Last Admin: 02/07/18 12:57 Dose: 1 mg Nystatin (Nystop Powder -) 1 applic TP BID [facility] Last Admin: 02/08/18 08:59 Dose: 1 applic Oxycodone HCl (Roxicodone -) 5 mg PO Q6H PRN PRN Reason: PAIN LEVEL 6-10 Ranitidine HCl (Zantac -) 150 mg PO DAILY [facility] Last Admin: 02/08/18 09:04 Dose: Not Given - Objective Vital Signs: Vital Signs Temperature 99.4 F 02/08/18 08:00 Pulse Rate 81 02/08/18 08:00 Respiratory Rate 20 02/08/18 08:00 Blood Pressure 124/74 02/08/18 08:00 O2 Sat by Pulse Oximetry (%) 99 02/07/18 21:00 Constitutional: Yes: No Distress Cardiovascular: Yes: Regular Rate and Rhythm Respiratory: Yes: Other (clear anteriorly) Gastrointestinal: Yes: Soft Edema: No Labs: CBC, BMP 02/08/18 06:45 02/08/18 06:45 INR, PTT INR 1.05 (0.82-1.09) 02/05/18 23:45 Laboratory Tests 02/05/18 02/08/18 02/08/18 23:45 06:45 06:45 WBC 9.7 Hgb 8.7 L D Plt Count 142 INR 1.05 Potassium 3.8 Creatinine 0.3 L Assessment/Plan Assessment/Plan 87 year old woman with a h/o advanced dementia, multiple prior "mini strokes" as per pts son, COPD, bedbound, admitted from [place] for R hip fracture. Pt is planned for surgical stabilization for pain reduction. Pt seen and examined today. Pt minimally responsive. opens eyes to voice. does not follow commands, no coherent speech. no reported history of c/o chest pain. Pt does have baseline intermittent sob due to COPD. History was obtained from the chart as well as from pts son Trevor again today in person. Perioperative cardiac risk stratification -see note 02/06 for preop evaluation - BP remains controlled -Pt can be monitored on telemetry postoperatively for 24 hours then return to med surg if no events
[2018-02-08] MEDS: BUDESONIDE 0.5 MG/2 ML INH SUSP VIAL NEB SCH ×2 (09:50→21:00)
[2018-02-08] MEDS ORDERED: BUPIVACAINE HCL/PF 0.5% (5MG/ML) 10 ML VIAL ONE (10:14)
[2018-02-08] MEDS ORDERED: ceFAZolin SODIUM 1 GM VIAL IVPB ONE (10:29)
[2018-02-08] MEDS ORDERED: MIDAZOLAM HCL 2 MG/2 ML SINGLE DOSE VIAL ONE (10:39)
[2018-02-08] MEDS ORDERED: ePHEDrine SULFATE 50 MG/1 ML AMPULE ONE (11:08)
[2018-02-08] MEDS ORDERED: ceFAZolin SODIUM 1 GM VIAL ONE ×2 (11:37)
--- NOTE | 2018-02-08 11:43 | OP ---
Operative Note - Note: Operative Date: 02/08/18 ([facility]) Pre-Operative Diagnosis: right proximal femur fx Operation: right IM gamma nail Post-Operative Diagnosis: Same as Pre-op Surgeon: Anastacio Gaxiola Bolter Helper: Damon Nicholson Anesthesiologist/ANIMAL ANATOMIST: Trevor Mackey Anesthesia: Spinal Estimated Blood Loss (mls): 150 Operative Report Dictated: Yes
[2018-02-08] MEDS ORDERED: oxyCODONE HCL 5 MG TABLET PO PRN ×2 (11:48→13:16)
[2018-02-08] MEDS ORDERED: PROMETHAZINE HCL 25 MG/1 ML VIAL IVPB PRN (11:48)
[2018-02-08] MEDS ORDERED: ONDANSETRON 4 MG/2 ML VIAL IVPUSH PRN (11:48)
[2018-02-08] MEDS ORDERED: LACTATED RINGERS SOLUTION 1,000 ML IV SCH (12:00)
--- NOTE | 2018-02-08 12:04 | PN ---
Progress Note (short form) - Note Progress Note: Medical coverage for Dr. Romero Michele Subjective: The patient was seen and examined at the bedside, she is non-verbal and does not open her eyes Current Medications Generic Name Dose Route Start Last Admin Trade Name Freq PRN Reason Stop Dose Admin Acetaminophen 650 mg 02/06/18 01:45 02/08/18 06:32 Tylenol - PO Not Given TID BRANDO Albuterol/Ipratropium 1 amp 02/06/18 08:00 02/08/18 07:40 Duoneb - NEB 1 amp RQID BRANDO Administration Artificial Tears 1 drop 02/06/18 10:00 02/08/18 09:03 Artificial Tears OU Not Given BID BRANDO Budesonide 1 amp 02/06/18 10:00 02/08/18 09:50 Pulmicort 0.5 Mg Nebulizer - NEB 1 amp BID BRANDO Administration Cholecalciferol 1,000 unit 02/06/18 10:00 02/08/18 09:04 Vitamin D3 - PO Not Given DAILY BRANDO Docusate Sodium 300 mg 02/06/18 22:00 02/07/18 21:59 Colace - PO Not Given HS BRANDO Enoxaparin Sodium 40 mg 02/09/18 10:00 Lovenox - SQ DAILY BRANDO Fentanyl 25 mcg 02/08/18 11:48 Sublimaze Injection - IVPUSH [id number] PRN PAIN-PACU ORDER X 4 DOSES ONLY Sodium Chloride 1,000 mls @ 80 mls/hr 02/06/18 11:31 02/07/18 10:40 Normal Saline - IV 80 mls/hr ASDIR BRANDO Administration Ceftriaxone Sodium 1 gm/ 50 mls @ 100 mls/hr 02/07/18 12:00 02/08/18 08:59 Dextrose IVPB 100 mls/hr DAILY BRANDO Administration Cefazolin Sodium 2 gm/ 50 mls @ 200 mls/hr 02/08/18 18:00 Dextrose IVPB 02/09/18 02:14 Q8H-IV BRANDO Lactated Ringer's 1,000 mls @ 75 mls/hr 02/08/18 12:00 Lactated Ringers Solution IV ASDIR BRANDO Morphine Sulfate 1 mg 02/06/18 01:24 02/07/18 12:57 Morphine Sulfate IVPUSH 1 mg Q4H PRN Administration PAIN LEVEL 7 - 10 Nystatin 1 applic 02/06/18 10:00 02/08/18 08:59 Nystop Powder - TP 1 applic BID BRANDO Administration Ondansetron HCl 4 mg 02/08/18 11:48 Zofran Injection IVPUSH Q6H PRN NAUSEA AND/OR VOMITING Oxycodone HCl 5 mg 02/06/18 11:27 Roxicodone - PO Q6H PRN PAIN LEVEL 6-10 Oxycodone HCl 5 mg 02/08/18 11:48 Roxicodone - PO 02/09/18 11:47 Q4H PRN PAIN LEVEL 1-5 Promethazine HCl 12.5 mg 02/08/18 11:48 Phenergan Injection - IVPUSH Q6H PRN NAUSEA-FOR RESCUE AFTER 15 MIN Ranitidine HCl 150 mg 02/06/18 10:00 02/08/18 09:04 Zantac - PO Not Given DAILY BRANDO Objective: Vital Signs Period Temp Pulse Resp BP Sys/Duran Pulse Ox Last 24 Hr 97.6 F-99.4 F 81-95 18-20 120-147/52-74 99 Physical Exam: General: Appears comfortable, NAD, non-verbal, does not open eyes Lungs: CTA b/l anteriorly Heart: RRR, S1S2 Abd: Soft, non-tender, non-distended. Normoactive bowel sounds Ext: Right leg shortened, external rotation. 2+ DP/PT bilaterally CBCD WBC 9.7 K/mm3 (4.0-10.0) 02/08/18 06:45 RBC 2.60 M/mm3 (3.60-5.2) L 02/08/18 06:45 Hgb 8.7 GM/dL (10.7-15.3) L D 02/08/18 06:45 Hct 25.4 % (32.4-45.2) L 02/08/18 06:45 MCV 97.6 fl (80-96) H 02/08/18 06:45 MCHC 34.4 g/dl (32.0-36.0) 02/08/18 06:45 RDW 13.3 % (11.6-15.6) 02/08/18 06:45 Plt Count 142 K/MM3 (134-434) 02/08/18 06:45 MPV 8.0 fl (7.5-11.1) 02/08/18 06:45 CMP Sodium 144 mmol/L (136-145) 02/08/18 06:45 Potassium 3.8 mmol/L (3.5-5.1) 02/08/18 06:45 Chloride 110 mmol/L (98-107) H 02/08/18 06:45 Carbon Dioxide 29 mmol/L (21-32) 02/08/18 06:45 Anion Gap 5 (8-16) L 02/08/18 06:45 BUN 5 mg/dL (7-18) L 02/08/18 06:45 Creatinine 0.3 mg/dL (0.55-1.02) L 02/08/18 06:45 Creat Clearance w eGFR > 60 (>60) 02/05/18 23:45 Random Glucose 108 mg/dL (74-106) H 02/08/18 06:45 Calcium 7.5 mg/dL (8.5-10.1) L 02/08/18 06:45 Total Bilirubin 0.5 mg/dL (0.2-1.0) D 02/05/18 23:45 AST 32 U/L (15-37) 02/05/18 23:45 ALT 28 U/L (12-78) 02/05/18 23:45 Alkaline Phosphatase 49 U/L (45-117) 02/05/18 23:45 Total Protein 6.6 g/dl (6.4-8.2) 02/05/18 23:45 Albumin 2.9 g/dl (3.4-5.0) L 02/05/18 23:45 Microbiology 02/06/18 02:00 Blood - Peripheral Venous Blood Culture - Preliminary NO GROWTH OBTAINED AFTER 48 HOURS, INCUBATION TO CONTINUE FOR 3 DAYS. 02/06/18 02:20 Blood - Peripheral Venous Blood Culture - Preliminary NO GROWTH OBTAINED AFTER 48 HOURS, INCUBATION TO CONTINUE FOR 3 DAYS. 02/06/18 02:35 Urine - Urine - Catheterized Urine Culture - Preliminary Group D Strep Or Entero Coccus Assessment: This is an 87 year old female with PMHx of advanced Alzheimer's disease, osteoporosis, CVA, HTN, hyperlipidemia, GERD, diverticulitis, who presented to the ED with right femur fracture. Plan: 1) Right proximal femur fracture - For right IM gamma nail today - Transfer to tele x24 hours post op - NPO for procedure - Appreciate ortho consult - Appreciate cardiology consult 2) Severe sepsis 2/2 UTI - Continue Ceftriaxone - Lactic acidosis resolved - WBC wnl - Continue to monitor 3) COPD - No evidence of acute exacerbation 4) F/E/N: - NPO for procedure - Monitor electrolytes 5) Prophylaxis: - Hold all chemical DVT prophylaxis for OR today 6) Dispo: - Requires continued inpatient care Visit type - Emergency Visit Emergency Visit: Yes ED Registration Date: 02/06/18 Care time: The patient presented to the Emergency Department on the above date and was hospitalized for further evaluation of their emergent condition. - New Patient This patient is new to me today: Yes Date on this admission: 02/08/18 - Critical Care Critical Care patient: No
[2018-02-08] MEDS: SODIUM CHLORIDE 1,000 ML IV SCH (14:15)
--- NOTE | 2018-02-08 14:37 | EKG ---
Test Reason : Blood Pressure : / mmHG Vent. Rate : 094 BPM Atrial Rate : 094 BPM P-R Int : 166 ms QRS Dur : 086 ms QT Int : 348 ms P-R-T Axes : 036 -09 069 degrees QTc Int : 435 ms NORMAL SINUS RHYTHM ABNORMAL ECG NONSPECIFIC ST ABNORMALITY Confirmed by FARHAD BONDS MD ([id number]) on 02/08/2018 2:37:01 PM Referred By: MICHAEL JUSTICE Confirmed By:FARHAD BONDS MD
--- NOTE | 2018-02-08 17:18 | OP ---
DATE OF OPERATION: 02/08/2018 PREOPERATIVE DIAGNOSIS: Right subtrochanteric femur fracture. POSTOPERATIVE DIAGNOSIS: Right subtrochanteric femur fracture. PROCEDURE: Long gamma nailing right subtrochanteric fracture. SURGEON ATTENDING: Giorgio Gaxiola M.D. AUTOMATIC TIRE TESTER: Aj Kim ANESTHESIA: Spinal. CLOSURE: A 260-mm length, 10-mm diameter, 120-degree long gamma nail, 0 Vicryl fascia, 3-0 subcuticular and barbara for skin. ESTIMATED BLOOD LOSS: 150 mL COMPLICATIONS: None. CONDITION: To recovery room in stable condition. DESCRIPTION OF PROCEDURE: Patient taken to operating room on February 08, 2018. Spinal anesthesia was administered by the anesthesiologist. IV Kefzol administered prophylactically prior to the case. Patient was fastened to the fracture table with all prominences well padded. The fracture was reduced with the use of the fracture table and confirmation was obtained in AP and lateral planes using image intensifier. The 6-cm longitudinal incision over the tip of the greater trochanter was incised, hemostasis achieved fascia. A guidewire was drilled on the tip of the trochanter into the proximal femur, this was over in with the proximal femur. There was a great deal of comminution in this region, and the lateral cortex really was not present. A long guidewire was placed down the intramedullary canal past the fracture into the distal fragment up until the saira from the total knee replacement which was coming from below. This was measured to be 260 mm. A 260-mm long gamma nail with a 120-degree screw was malleted into place achieving length up until the saira from the total knee replacement and being in appropriate position in the hip. femur past the saira into the femoral head, proper placement was confirmed in AP plane with image intensifier. This was depth gaged and then screwed to the appropriate size lag screw, achieving excellent fixation. A set screw was placed from above in the static fashion. The fracture was allowed to collapse by decreasing the traction. Two distal interlocks were placed using free hand technique from the lateral and medial to the 2 small stab incisions achieving excellent fixation. All incisions were irrigated with copious amounts of irrigation. The fascia was closed with Vicryl 0 and 2-0 and barbara for skin. Sterile pressure dressing was placed over the incision. Fluoroscopy revealed excellent position hardware with no fracture between the gamma nail and the saira from the total knee replacement, although this is a stress riser, potential for fracture in this reason, had discussed with the patient's family prior about putting in prophylactic plate in this region, and they did not want to go forward with that. They wanted as minimal a procedure as possible. Therefore woke the patient up from anesthesia and transferred to recovery room in stable condition. GIORGIO GAXIOLA M.D. [id number]
[2018-02-08] MEDS ORDERED: CEFAZOLIN 2 GM/D5W 2 GM/50 ML ML IVPB SCH (18:00)
[2018-02-08] MEDS: morphine SULFATE 4 MG/ML VIAL IVPUSH PRN (18:48)
[2018-02-08] MEDS: CEFAZOLIN 2 GM/D5W 2 GM/50 ML ML IVPB SCH (18:48)
[2018-02-08] MEDS ORDERED: PT OWN MED DRAWER 7, Y5N ONE (21:45)
[2018-02-08] MEDS: DOCUSATE SODIUM 100 MG CAPSULE (FP) PO SCH ×2 (22:02→22:06)
[2018-02-09] MEDS: CEFAZOLIN 2 GM/D5W 2 GM/50 ML ML IVPB SCH (01:19)
[2018-02-09] MEDS: morphine SULFATE 4 MG/ML VIAL IVPUSH PRN (02:25)
[2018-02-09] MEDS: ACETAMINOPHEN 325 MG TABLET (FP) PO SCH ×3 (06:47→22:20)
[2018-02-09] MEDS: ALBUTEROL SO4 2.5/IPRATROPIUM 0.5 INH SOL 3 ML VIAL.NEB. NEB SCH ×4 (07:53→21:00)
[2018-02-09 07:56] LABS: HEMATOCRIT 22.7 % (32.4-45.2); HEMOGLOBIN 7.7 GM/dL (10.7-15.3); MCH 33.5 pg (25.7-33.7); MCHC 34.1 g/dl (32.0-36.0); MEAN CELL VOLUME 98.2 fl (80-96); MEAN PLT VOLUME 8.2 fl (7.5-11.1); PLATELET COUNT 173 K/MM3 (134-434); RBC 2.31 M/mm3 (3.60-5.2); WHITE BLOOD COUNT 11.7 K/mm3 (4.0-10.0)
[2018-02-09 08:09] LABS: ANION GAP 10 (8-16); BLOOD UREA NITROGEN 5 mg/dL (7-18); CALCIUM 7.6 mg/dL (8.5-10.1); CHLORIDE 106 mmol/L (98-107); CO2 27 mmol/L (21-32); GLUCOSE,RANDOM 116 mg/dL (74-106); POTASSIUM 3.6 mmol/L (3.5-5.1); SODIUM 143 mmol/L (136-145)
[2018-02-09 08:14] LABS: ALK PHOS 33 U/L (45-117); BILIRUBIN,TOTAL 0.8 mg/dL (0.2-1.0); CREATININE 0.4 mg/dL (0.55-1.02); SGOT/AST 28 U/L (15-37); SGPT/ALT 15 U/L (12-78); TOT PROT 4.6 g/dl (6.4-8.2)
--- NOTE | 2018-02-09 08:41 | PN ---
Progress Note (short form) - Note Progress Note: Post op day#1.S/P Right hip ORIF under spinal anesthesia uneventful.Patient stable.No any anesthesia related problem.Patient DC from the anesthesia care.
[2018-02-09] MEDS ORDERED: cefTRIAXone SODIUM 1 GM VIAL ONE (09:29)
[2018-02-09] MEDS ORDERED: DEXTROSE 5%-WATER - 50 ML IVPB ONE (09:29)
[2018-02-09] MEDS: ENOXAPARIN NA (PORCINE) 40 MG/0.4 ML DISP.SYRIN SQ SCH (09:31)
[2018-02-09] MEDS: CEFTRIAXONE 1 GM in DEXTROSE 5%-WATER - 50 ML IVPB SCH (09:32)
[2018-02-09] MEDS: CHOLECALCIFEROL (VITAMIN D3) 1,000 UNIT TABLET (FP) PO SCH ×2 (09:38→11:13)
[2018-02-09] MEDS: RANITIDINE HCL 150 MG TABLET (FP) PO SCH ×2 (09:38→11:14)
[2018-02-09] MEDS: BUDESONIDE 0.5 MG/2 ML INH SUSP VIAL NEB SCH ×2 (09:40→21:30)
[2018-02-09] MEDS ORDERED: ENOXAPARIN NA (PORCINE) 40 MG/0.4 ML DISP.SYRIN SQ SCH (10:00)
--- NOTE | 2018-02-09 12:01 | PN ---
Progress Note, Physician Chief Complaint: Pt is eating (fed by her son). History of Present Illness: The patient is an 87 year old white female with a significant PMH of CVA, dementia, and hyperlipidemia, and prior falls, who presents to the emergency department from [facility] with right hip pain. The patient is unable to provide history secondary to dementia but she presents with imaging paperwork from [facility] which reads acutely displaced and angulated right proximal femoral diaphyseal fracture. High grade osteoarthritis of the right hip. Allergies: NKA Past surgical history: None reported Social history: No reported cigarette, alcohol, or drug use. - Current Medication List Current Medications: Active Medications Acetaminophen (Tylenol -) 650 mg PO TID [facility] Last Admin: 02/09/18 06:47 Dose: 650 mg Albuterol/Ipratropium (Duoneb -) 1 amp NEB RQID [facility] Last Admin: 02/09/18 11:25 Dose: 1 amp Artificial Tears (Artificial Tears) 1 drop OU BID [facility] Last Admin: 02/08/18 22:02 Dose: 1 drop Budesonide (Pulmicort 0.5 Mg Nebulizer -) 1 amp NEB BID [facility] Last Admin: 02/09/18 09:40 Dose: 1 amp Cholecalciferol (Vitamin D3 -) 1,000 unit PO DAILY [facility] Last Admin: 02/09/18 11:13 Dose: 1,000 unit Docusate Sodium (Colace -) 300 mg PO HS [facility] Last Admin: 02/08/18 22:06 Dose: Not Given Enoxaparin Sodium (Lovenox -) 40 mg SQ DAILY [facility] Last Admin: 02/09/18 09:31 Dose: 40 mg Fentanyl (Sublimaze Injection -) 25 mcg IVPUSH [id number] PRN PRN Reason: PAIN-PACU ORDER X 4 DOSES ONLY Ceftriaxone Sodium 1 gm/ (Dextrose) 50 mls @ 100 mls/hr IVPB DAILY [facility] Last Admin: 02/09/18 09:32 Dose: 100 mls/hr Sodium Chloride (Normal Saline -) 1,000 mls @ 80 mls/hr IV ASDIR [facility] Last Admin: 02/08/18 14:15 Dose: 0 mls Morphine Sulfate (Morphine Sulfate) 1 mg IVPUSH Q4H PRN PRN Reason: PAIN LEVEL 7 - 10 Last Admin: 02/09/18 02:25 Dose: 1 mg Nystatin (Nystop Powder -) 1 applic TP BID [facility] Last Admin: 02/08/18 22:02 Dose: Not Given Ondansetron HCl (Zofran Injection) 4 mg IVPUSH Q6H PRN PRN Reason: NAUSEA AND/OR VOMITING Oxycodone HCl (Roxicodone -) 5 mg PO Q6H PRN PRN Reason: PAIN LEVEL 6-10 Promethazine HCl (Phenergan Injection -) 12.5 mg IVPB Q6H PRN PRN Reason: NAUSEA-FOR RESCUE AFTER 15 MIN Ranitidine HCl (Zantac -) 150 mg PO DAILY [facility] Last Admin: 02/09/18 11:14 Dose: 150 mg - Objective Vital Signs: Vital Signs Temperature 98.8 F 02/09/18 06:00 Pulse Rate 90 02/09/18 06:00 Respiratory Rate 20 02/09/18 06:00 Blood Pressure 103/47 02/09/18 06:00 O2 Sat by Pulse Oximetry (%) 97 02/08/18 21:00 Constitutional: Yes: Other Eyes: Yes: WNL HENT: Yes: WNL Neck: Yes: Decreased ROM Cardiovascular: Yes: S1, S2 Respiratory: Yes: Regular Gastrointestinal: Yes: Soft Genitourinary: No: Anuria Musculoskeletal: Yes: Other (bilateral scars (knee replacements)) Edema: No Peripheral Pulses WNL: Yes Neurological: Yes: Alert, Weakness. No: Oriented Psychiatric: Yes: Other (dementia) Labs: CBC, BMP 02/09/18 06:00 02/09/18 06:00 INR, PTT INR 1.05 (0.82-1.09) 02/05/18 23:45 Problem List - Problems (1) Anemia Assessment/Plan: severe anemia worsened post-ORIF (Hb 13.7-->7.7 over the past 4 days). For PRBCs; f/u re etiology. Code(s): D64.9 - ANEMIA, UNSPECIFIED (2) Dementia Code(s): F03.90 - UNSPECIFIED DEMENTIA WITHOUT BEHAVIORAL DISTURBANCE (3) Femur fracture, right Assessment/Plan: s/p right ORIF. Pain managament. F/u drop in Hb; will need PRBCs. Code(s): S72.91XA - UNSP FRACTURE OF RIGHT FEMUR, INIT FOR CLOS FX (4) Fever Code(s): R50.9 - FEVER, UNSPECIFIED (5) Urinary tract infection Code(s): N39.0 - URINARY TRACT INFECTION, SITE NOT SPECIFIED
--- NOTE | 2018-02-09 12:44 | PN ---
Progress Note, Physician History of Present Illness: patient seen and examined. Chart reviewed. Postoperative #1. Comfortable. Note in distress or pain. Eating very well. Does not open eyes. - Current Medication List Current Medications: Active Medications Acetaminophen (Tylenol -) 650 mg PO TID [facility] Last Admin: 02/09/18 06:47 Dose: 650 mg Albuterol/Ipratropium (Duoneb -) 1 amp NEB RQID [facility] Last Admin: 02/09/18 11:25 Dose: 1 amp Artificial Tears (Artificial Tears) 1 drop OU BID [facility] Last Admin: 02/08/18 22:02 Dose: 1 drop Budesonide (Pulmicort 0.5 Mg Nebulizer -) 1 amp NEB BID [facility] Last Admin: 02/09/18 09:40 Dose: 1 amp Cholecalciferol (Vitamin D3 -) 1,000 unit PO DAILY [facility] Last Admin: 02/09/18 11:13 Dose: 1,000 unit Docusate Sodium (Colace -) 300 mg PO HS [facility] Last Admin: 02/08/18 22:06 Dose: Not Given Enoxaparin Sodium (Lovenox -) 40 mg SQ DAILY [facility] Last Admin: 02/09/18 09:31 Dose: 40 mg Fentanyl (Sublimaze Injection -) 25 mcg IVPUSH [id number] PRN PRN Reason: PAIN-PACU ORDER X 4 DOSES ONLY Ceftriaxone Sodium 1 gm/ (Dextrose) 50 mls @ 100 mls/hr IVPB DAILY [facility] Last Admin: 02/09/18 09:32 Dose: 100 mls/hr Sodium Chloride (Normal Saline -) 1,000 mls @ 80 mls/hr IV ASDIR [facility] Last Admin: 02/08/18 14:15 Dose: 0 mls Morphine Sulfate (Morphine Sulfate) 1 mg IVPUSH Q4H PRN PRN Reason: PAIN LEVEL 7 - 10 Last Admin: 02/09/18 02:25 Dose: 1 mg Nystatin (Nystop Powder -) 1 applic TP BID [facility] Last Admin: 02/08/18 22:02 Dose: Not Given Ondansetron HCl (Zofran Injection) 4 mg IVPUSH Q6H PRN PRN Reason: NAUSEA AND/OR VOMITING Oxycodone HCl (Roxicodone -) 5 mg PO Q6H PRN PRN Reason: PAIN LEVEL 6-10 Promethazine HCl (Phenergan Injection -) 12.5 mg IVPB Q6H PRN PRN Reason: NAUSEA-FOR RESCUE AFTER 15 MIN Ranitidine HCl (Zantac -) 150 mg PO DAILY [facility] Last Admin: 02/09/18 11:14 Dose: 150 mg - Objective Vital Signs: Vital Signs Temperature 98.8 F 02/09/18 06:00 Pulse Rate 90 02/09/18 06:00 Respiratory Rate 20 02/09/18 06:00 Blood Pressure 103/47 02/09/18 06:00 O2 Sat by Pulse Oximetry (%) 97 02/08/18 21:00 Constitutional: Yes: No Distress, Calm Neck: Yes: Supple Cardiovascular: Yes: Regular Rate and Rhythm Respiratory: Yes: CTA Bilaterally Gastrointestinal: Yes: Soft Musculoskeletal: Yes: Other (status post right hip surgery) Edema: No Labs: CBC, BMP 02/09/18 06:00 02/09/18 06:00 INR, PTT INR 1.05 (0.82-1.09) 02/05/18 23:45 - ....Imaging X-ray: Report Reviewed (echocardiogram reviewed) Problem List - Problems (1) Fever Code(s): R50.9 - FEVER, UNSPECIFIED (2) Urinary tract infection Code(s): N39.0 - URINARY TRACT INFECTION, SITE NOT SPECIFIED (3) Anemia Code(s): D64.9 - ANEMIA, UNSPECIFIED (4) Femur fracture, right Code(s): S72.91XA - UNSP FRACTURE OF RIGHT FEMUR, INIT FOR CLOS FX (5) Dementia Code(s): F03.90 - UNSPECIFIED DEMENTIA WITHOUT BEHAVIORAL DISTURBANCE Assessment/Plan clinically stable. Pain under control. Antibiotics. Monitor labs and CBC. Transfuse when necessary. Discussed in detail with nursing staff. We will follow.
[2018-02-09] MEDS: ARTIFICIAL TEARS (POLYVINYL ALCOHOL 1.4%) OPTH DROPS OU SCH ×2 (14:20→22:21)
[2018-02-09] MEDS: NYSTATIN POWDER 100,000 UNITS/GM - 15 GM TOPICAL POWDER TP SCH ×2 (14:21→23:11)
[2018-02-09] MEDS: SODIUM CHLORIDE 1,000 ML IV SCH (14:28)
--- NOTE | 2018-02-09 18:42 | EKG ---
Test Reason : Blood Pressure : / mmHG Vent. Rate : 098 BPM Atrial Rate : 098 BPM P-R Int : 166 ms QRS Dur : 092 ms QT Int : 346 ms P-R-T Axes : 029 -11 047 degrees QTc Int : 441 ms NORMAL SINUS RHYTHM NORMAL ECG WHEN COMPARED WITH ECG OF 08-FEB-2018 13:55, CRITERIA FOR SEPTAL INFARCT ARE NO LONGER PRESENT Confirmed by URIAH BANUELOS MD ([id number]) on 02/09/2018 6:42:05 PM Referred By: Confirmed By:URIAH BANUELOS MD
[2018-02-09] MEDS ORDERED: PT OWN MED DRAWER 7, Y5N ONE (22:09)
[2018-02-09] MEDS: DOCUSATE SODIUM 100 MG CAPSULE (FP) PO SCH (22:24)
[2018-02-09] MEDS: DOCUSATE NA 100 MG/10 ML UNIT-DOSE CUPS PO SCH (23:11)
[2018-02-10] MEDS: ACETAMINOPHEN 325 MG TABLET (FP) PO SCH ×4 (06:28→22:05)
[2018-02-10 08:03] LABS: BASO % 0.4 % (0-2.0); EOS % 1.5 % (0-4.5); LYMPH % 11.1 % (8-40); MCH 33.8 pg (25.7-33.7); MCHC 34.2 g/dl (32.0-36.0); MEAN CELL VOLUME 98.8 fl (80-96); MEAN PLT VOLUME 7.9 fl (7.5-11.1); MONO % 20.1 % (3.8-10.2); NEUT % 66.9 % (42.8-82.8); PLATELET COUNT 178 K/MM3 (134-434); RBC 1.96 M/mm3 (3.60-5.2); RDW 13.5 % (11.6-15.6); WHITE BLOOD COUNT 10.6 K/mm3 (4.0-10.0)
[2018-02-10] MEDS: ALBUTEROL SO4 2.5/IPRATROPIUM 0.5 INH SOL 3 ML VIAL.NEB. NEB SCH ×4 (08:06→20:38)
[2018-02-10 08:10] LABS: ALBUMIN 1.9 g/dl (3.4-5.0); ANION GAP 5 (8-16); BLOOD UREA NITROGEN 5 mg/dL (7-18); CALCIUM 7.2 mg/dL (8.5-10.1); CHLORIDE 111 mmol/L (98-107); CO2 29 mmol/L (21-32); GLUCOSE,RANDOM 118 mg/dL (74-106); POTASSIUM 3.5 mmol/L (3.5-5.1); SGOT/AST 32 U/L (15-37); SGPT/ALT 16 U/L (12-78); SODIUM 145 mmol/L (136-145)
[2018-02-10 08:12] LABS: ALK PHOS 33 U/L (45-117); BILIRUBIN,TOTAL 0.6 mg/dL (0.2-1.0); CREATININE 0.3 mg/dL (0.55-1.02); TOT PROT 4.3 g/dl (6.4-8.2)
[2018-02-10] MEDS ORDERED: cefTRIAXone SODIUM 1 GM VIAL ONE (08:24)
[2018-02-10] MEDS ORDERED: DEXTROSE 5%-WATER - 50 ML IVPB ONE (08:25)
[2018-02-10 08:28] LABS: HEMATOCRIT 19.4 % (32.4-45.2); HEMOGLOBIN 6.6 GM/dL (10.7-15.3)
[2018-02-10] MEDS: BUDESONIDE 0.5 MG/2 ML INH SUSP VIAL NEB SCH ×2 (10:05→22:05)
[2018-02-10] MEDS: ARTIFICIAL TEARS (POLYVINYL ALCOHOL 1.4%) OPTH DROPS OU SCH ×2 (10:20→22:06)
[2018-02-10] MEDS: RANITIDINE HCL 150 MG TABLET (FP) PO SCH (10:20)
[2018-02-10] MEDS: ENOXAPARIN NA (PORCINE) 40 MG/0.4 ML DISP.SYRIN SQ SCH (10:20)
[2018-02-10] MEDS: CHOLECALCIFEROL (VITAMIN D3) 1,000 UNIT TABLET (FP) PO SCH (10:20)
[2018-02-10] MEDS: NYSTATIN POWDER 100,000 UNITS/GM - 15 GM TOPICAL POWDER TP SCH ×2 (10:20→22:06)
[2018-02-10] MEDS: CEFTRIAXONE 1 GM in DEXTROSE 5%-WATER - 50 ML IVPB SCH (10:20)
[2018-02-10] MEDS ORDERED: FUROSEMIDE 40 MG/4 ML INJECTABLE VIAL IVPUSH ONE ×2 (12:30→21:00)
[2018-02-10] MEDS: SODIUM CHLORIDE 1,000 ML IV SCH (13:34)
--- NOTE | 2018-02-10 16:55 | PN ---
Progress Note, Physician Chief Complaint: Pt responds to her name; does not follow commands History of Present Illness: The patient is an 87 year old white female with a significant PMH of CVA, dementia, and hyperlipidemia, and prior falls who presents to the emergency department from [facility] with right hip pain. The patient is unable to provide history secondary to dementia but she presents with imaging paperwork from [facility] which reads acutely displaced and angulated right proximal femoral diaphyseal fracture. High grade osteoarthritis of the right hip. Allergies: NKA Past surgical history: bilateral knee replacments Social history: No reported cigarette, alcohol, or drug use. - Current Medication List Current Medications: Active Medications Acetaminophen (Tylenol -) 650 mg PO TID [facility] Last Admin: 02/10/18 15:13 Dose: 650 mg Albuterol/Ipratropium (Duoneb -) 1 amp NEB RQID [facility] Last Admin: 02/10/18 11:29 Dose: 1 amp Artificial Tears (Artificial Tears) 1 drop OU BID [facility] Last Admin: 02/10/18 10:20 Dose: 1 drop Budesonide (Pulmicort 0.5 Mg Nebulizer -) 1 amp NEB BID [facility] Last Admin: 02/10/18 10:05 Dose: 1 amp Cholecalciferol (Vitamin D3 -) 1,000 unit PO DAILY [facility] Last Admin: 02/10/18 10:20 Dose: 1,000 unit Docusate Sodium (Colace Liquid -) 300 mg PO HS [facility] Last Admin: 02/09/18 23:11 Dose: 300 mg Enoxaparin Sodium (Lovenox -) 40 mg SQ DAILY [facility] Last Admin: 02/10/18 10:20 Dose: 40 mg Ceftriaxone Sodium 1 gm/ (Dextrose) 50 mls @ 100 mls/hr IVPB DAILY [facility] Last Admin: 02/10/18 10:20 Dose: 100 mls/hr Sodium Chloride (Normal Saline -) 1,000 mls @ 80 mls/hr IV ASDIR [facility] Last Admin: 02/10/18 13:34 Dose: Not Given Morphine Sulfate (Morphine Sulfate) 1 mg IVPUSH Q4H PRN PRN Reason: PAIN LEVEL 7 - 10 Last Admin: 02/09/18 02:25 Dose: 1 mg Nystatin (Nystop Powder -) 1 applic TP BID [facility] Last Admin: 02/10/18 10:20 Dose: 1 applic Ondansetron HCl (Zofran Injection) 4 mg IVPUSH Q6H PRN PRN Reason: NAUSEA AND/OR VOMITING Oxycodone HCl (Roxicodone -) 5 mg PO Q6H PRN PRN Reason: PAIN LEVEL 6-10 Last Admin: 02/10/18 08:31 Dose: 5 mg Promethazine HCl (Phenergan Injection -) 12.5 mg IVPB Q6H PRN PRN Reason: NAUSEA-FOR RESCUE AFTER 15 MIN Ranitidine HCl (Zantac -) 150 mg PO DAILY [facility] Last Admin: 02/10/18 10:20 Dose: 150 mg - Objective Vital Signs: Vital Signs Temperature 98.5 F 02/10/18 13:41 Pulse Rate 105 H 02/10/18 13:41 Respiratory Rate 18 02/10/18 13:41 Blood Pressure 139/92 02/10/18 13:41 O2 Sat by Pulse Oximetry (%) 97 02/10/18 10:00 Labs: CBC, BMP 02/10/18 06:30 02/10/18 06:30 INR, PTT INR 1.05 (0.82-1.09) 02/05/18 23:45 Problem List - Problems (1) Anemia Assessment/Plan: sevefre anemia ? worsened post right femoral ORIF. For PRBCs Code(s): D64.9 - ANEMIA, UNSPECIFIED (2) Dementia Code(s): F03.90 - UNSPECIFIED DEMENTIA WITHOUT BEHAVIORAL DISTURBANCE (3) Fever Code(s): R50.9 - FEVER, UNSPECIFIED (4) Urinary tract infection Code(s): N39.0 - URINARY TRACT INFECTION, SITE NOT SPECIFIED
[2018-02-10] MEDS: morphine SULFATE 4 MG/ML VIAL IVPUSH PRN (17:08)
[2018-02-10] MEDS ORDERED: FUROSEMIDE 40 MG/4 ML INJECTABLE VIAL ONE (20:49)
[2018-02-10] MEDS ORDERED: PT OWN MED DRAWER 7, Y5N ONE (22:04)
[2018-02-10] MEDS: DOCUSATE NA 100 MG/10 ML UNIT-DOSE CUPS PO SCH (22:06)
[2018-02-11 06:10] LABS: BASO % 0.5 % (0-2.0); EOS % 2.5 % (0-4.5); HEMATOCRIT 23.6 % (32.4-45.2); HEMOGLOBIN 8.1 GM/dL (10.7-15.3); LYMPH % 12.3 % (8-40); MCH 32.5 pg (25.7-33.7); MCHC 34.2 g/dl (32.0-36.0); MEAN CELL VOLUME 94.9 fl (80-96); MEAN PLT VOLUME 7.5 fl (7.5-11.1); MONO % 16.6 % (3.8-10.2); NEUT % 68.1 % (42.8-82.8); PLATELET COUNT 222 K/MM3 (134-434); RBC 2.49 M/mm3 (3.60-5.2); RDW 15.3 % (11.6-15.6); WHITE BLOOD COUNT 12.4 K/mm3 (4.0-10.0)
[2018-02-11] MEDS: ACETAMINOPHEN 325 MG TABLET (FP) PO SCH ×3 (06:48→21:18)
[2018-02-11 08:36] LABS: ALBUMIN 1.9 g/dl (3.4-5.0); ANION GAP 8 (8-16); BLOOD UREA NITROGEN 7 mg/dL (7-18); CALCIUM 7.7 mg/dL (8.5-10.1); CHLORIDE 105 mmol/L (98-107); CO2 31 mmol/L (21-32); GLUCOSE,RANDOM 100 mg/dL (74-106); POTASSIUM 3.6 mmol/L (3.5-5.1); SODIUM 144 mmol/L (136-145)
[2018-02-11 08:40] LABS: ALK PHOS 35 U/L (45-117); CREATININE 0.3 mg/dL (0.55-1.02); SGOT/AST 30 U/L (15-37); SGPT/ALT 15 U/L (12-78); TOT PROT 4.7 g/dl (6.4-8.2)
[2018-02-11] MEDS: ALBUTEROL SO4 2.5/IPRATROPIUM 0.5 INH SOL 3 ML VIAL.NEB. NEB SCH ×4 (08:57→21:00)
[2018-02-11] MEDS: BUDESONIDE 0.5 MG/2 ML INH SUSP VIAL NEB SCH ×2 (09:44→22:00)
[2018-02-11] MEDS ORDERED: cefTRIAXone SODIUM 1 GM VIAL ONE (10:08)
[2018-02-11] MEDS ORDERED: DEXTROSE 5%-WATER - 50 ML IVPB ONE (10:08)
[2018-02-11] MEDS: CEFTRIAXONE 1 GM in DEXTROSE 5%-WATER - 50 ML IVPB SCH (10:17)
[2018-02-11] MEDS: CHOLECALCIFEROL (VITAMIN D3) 1,000 UNIT TABLET (FP) PO SCH (10:17)
[2018-02-11] MEDS: RANITIDINE HCL 150 MG TABLET (FP) PO SCH (10:17)
[2018-02-11] MEDS: ARTIFICIAL TEARS (POLYVINYL ALCOHOL 1.4%) OPTH DROPS OU SCH ×2 (10:17→21:19)
[2018-02-11] MEDS: ENOXAPARIN NA (PORCINE) 40 MG/0.4 ML DISP.SYRIN SQ SCH (10:17)
[2018-02-11] MEDS: NYSTATIN POWDER 100,000 UNITS/GM - 15 GM TOPICAL POWDER TP SCH ×2 (10:18→21:19)
[2018-02-11] MEDS: morphine SULFATE 4 MG/ML VIAL IVPUSH PRN (11:50)
--- NOTE | 2018-02-11 14:07 | PN ---
Progress Note (short form) - Note Progress Note: Late note entry. Patient was seen on 02/10/18 Comfortable No new issues Decrease in hemoglobin Transfusion was ordered Labs reviewed Medications reviewed on exam- Awake/no distress Lungs--clear CVS-heart sounds regular Abdomen-soft Extremities--status post right hip surgery--site clean Neuro--drowsy but arousable--- do not talk Assessment and plan clinically stable. Pain under control. Antibiotics. Monitor labs and CBC. Transfuse Discussed with nursing staff. We will follow. Problem List - Problems (1) Fever Code(s): R50.9 - FEVER, UNSPECIFIED (2) Urinary tract infection Code(s): N39.0 - URINARY TRACT INFECTION, SITE NOT SPECIFIED (3) Anemia Code(s): D64.9 - ANEMIA, UNSPECIFIED (4) Femur fracture, right Code(s): S72.91XA - UNSP FRACTURE OF RIGHT FEMUR, INIT FOR CLOS FX (5) Dementia Code(s): F03.90 - UNSPECIFIED DEMENTIA WITHOUT BEHAVIORAL DISTURBANCE
--- NOTE | 2018-02-11 14:08 | PN ---
Progress Note, Physician History of Present Illness: patient seen and examined. Chart reviewed. Postoperative #3 Comfortable. Not in distress or pain. Eating okay Does not open eyes. son at bedside H&H low--but improved-- transfusion ordered today - Current Medication List Current Medications: Active Medications Acetaminophen (Tylenol -) 650 mg PO TID [facility] Last Admin: 02/11/18 06:48 Dose: 650 mg Albuterol/Ipratropium (Duoneb -) 1 amp NEB RQID [facility] Last Admin: 02/11/18 12:39 Dose: 1 amp Artificial Tears (Artificial Tears) 1 drop OU BID [facility] Last Admin: 02/11/18 10:17 Dose: 1 drop Budesonide (Pulmicort 0.5 Mg Nebulizer -) 1 amp NEB BID [facility] Last Admin: 02/11/18 09:44 Dose: 1 amp Cholecalciferol (Vitamin D3 -) 1,000 unit PO DAILY [facility] Last Admin: 02/11/18 10:17 Dose: 1,000 unit Docusate Sodium (Colace Liquid -) 300 mg PO HS [facility] Last Admin: 02/10/18 22:06 Dose: 300 mg Enoxaparin Sodium (Lovenox -) 40 mg SQ DAILY [facility] Last Admin: 02/11/18 10:17 Dose: 40 mg Furosemide (Lasix Injection -) 20 mg IVPUSH ONCE ONE Stop: 02/11/18 13:01 Ceftriaxone Sodium 1 gm/ (Dextrose) 50 mls @ 100 mls/hr IVPB DAILY [facility] Last Admin: 02/11/18 10:17 Dose: 100 mls/hr Nystatin (Nystop Powder -) 1 applic TP BID [facility] Last Admin: 02/11/18 10:18 Dose: 1 applic Ondansetron HCl (Zofran Injection) 4 mg IVPUSH Q6H PRN PRN Reason: NAUSEA AND/OR VOMITING Polyethylene Glycol (Miralax (For Daily Use) -) 17 gm PO DAILY [facility] Promethazine HCl (Phenergan Injection -) 12.5 mg IVPB Q6H PRN PRN Reason: NAUSEA-FOR RESCUE AFTER 15 MIN Ranitidine HCl (Zantac -) 150 mg PO DAILY [facility] Last Admin: 02/11/18 10:17 Dose: 150 mg - Objective Vital Signs: Vital Signs Temperature 99.2 F 02/11/18 05:35 Pulse Rate 96 H 02/11/18 05:35 Respiratory Rate 18 02/11/18 05:35 Blood Pressure 126/69 02/11/18 05:35 O2 Sat by Pulse Oximetry (%) 96 02/11/18 10:00 Constitutional: Yes: No Distress, Calm Eyes: Yes: Conjunctiva Clear Neck: Yes: Supple Cardiovascular: Yes: Regular Rate and Rhythm Respiratory: Yes: Diminished Gastrointestinal: Yes: Soft Edema: No Labs: CBC, BMP 02/11/18 05:50 02/11/18 07:30 INR, PTT INR 1.05 (0.82-1.09) 02/05/18 23:45 Problem List - Problems (1) Fever Code(s): R50.9 - FEVER, UNSPECIFIED (2) Urinary tract infection Code(s): N39.0 - URINARY TRACT INFECTION, SITE NOT SPECIFIED (3) Anemia Code(s): D64.9 - ANEMIA, UNSPECIFIED (4) Femur fracture, right Code(s): S72.91XA - UNSP FRACTURE OF RIGHT FEMUR, INIT FOR CLOS FX (5) Dementia Code(s): F03.90 - UNSPECIFIED DEMENTIA WITHOUT BEHAVIORAL DISTURBANCE Assessment/Plan clinically stable. Pain under control. Antibiotics. Monitor labs and CBC. Transfuse Discussed in detail with nursing staff. anticipate discharge tomorrow. We will follow. discussed with patient's son.
--- NOTE | 2018-02-11 15:04 | PN ---
Progress Note (short form) - Note Progress Note: Ortho Pt seen and examined s/p right IM gamma nail. Selected Entries 02/11/18 14:43 Temperature 99.2 F Pulse Rate 99 H Respiratory 18 Rate Blood Pressure 115/59 Laboratory Tests 02/11/18 05:50 WBC 12.4 H Hgb 8.1 L D Hct 23.6 L D Plt Count 222 D dressing c/d/i, calf soft a/p being transfused f/u h/h bedrest oob if possible pain control dvt ppx d/c planning
--- NOTE | 2018-02-11 15:20 | PN ---
Progress Note, Physician History of Present Illness: seen and examined today with son at bedside. nad. pt opens eyes and says some words but incoherent. no reported new events. pt was noted to be anemic, was given PRBCs, H/H improved. - Current Medication List Current Medications: Active Medications Acetaminophen (Tylenol -) 650 mg PO TID [facility] Last Admin: 02/11/18 15:05 Dose: 650 mg Albuterol/Ipratropium (Duoneb -) 1 amp NEB RQID [facility] Last Admin: 02/11/18 12:39 Dose: 1 amp Artificial Tears (Artificial Tears) 1 drop OU BID [facility] Last Admin: 02/11/18 10:17 Dose: 1 drop Budesonide (Pulmicort 0.5 Mg Nebulizer -) 1 amp NEB BID [facility] Last Admin: 02/11/18 09:44 Dose: 1 amp Cholecalciferol (Vitamin D3 -) 1,000 unit PO DAILY [facility] Last Admin: 02/11/18 10:17 Dose: 1,000 unit Docusate Sodium (Colace Liquid -) 300 mg PO HS [facility] Last Admin: 02/10/18 22:06 Dose: 300 mg Enoxaparin Sodium (Lovenox -) 40 mg SQ DAILY [facility] Last Admin: 02/11/18 10:17 Dose: 40 mg Furosemide (Lasix Injection -) 20 mg IVPUSH ONCE ONE Stop: 02/11/18 13:01 Ceftriaxone Sodium 1 gm/ (Dextrose) 50 mls @ 100 mls/hr IVPB DAILY [facility] Last Admin: 02/11/18 10:17 Dose: 100 mls/hr Nystatin (Nystop Powder -) 1 applic TP BID [facility] Last Admin: 02/11/18 10:18 Dose: 1 applic Ondansetron HCl (Zofran Injection) 4 mg IVPUSH Q6H PRN PRN Reason: NAUSEA AND/OR VOMITING Polyethylene Glycol (Miralax (For Daily Use) -) 17 gm PO DAILY [facility] Promethazine HCl (Phenergan Injection -) 12.5 mg IVPB Q6H PRN PRN Reason: NAUSEA-FOR RESCUE AFTER 15 MIN Ranitidine HCl (Zantac -) 150 mg PO DAILY [facility] Last Admin: 02/11/18 10:17 Dose: 150 mg - Objective Vital Signs: Vital Signs Temperature 99.2 F 02/11/18 14:43 Pulse Rate 99 H 03/19/18 14:43 Respiratory Rate 18 02/11/18 14:43 Blood Pressure 115/59 02/11/18 14:43 O2 Sat by Pulse Oximetry (%) 96 02/11/18 10:00 Constitutional: Yes: No Distress, Calm HENT: Yes: Atraumatic, Normocephalic Cardiovascular: Yes: Regular Rate and Rhythm, Murmur, S1, S2. No: Bradycardia, Tachycardia, Pulse Irregular, Bruit, JVD, Gallop, Rub, S3, S4, Varicosities Respiratory: Yes: Regular. No: Rales, Rhonchi, Wheezes Gastrointestinal: Yes: Normal Bowel Sounds, Soft. No: Distention, Tenderness Edema: No Peripheral Pulses WNL: Yes Neurological: No: Alert, Oriented Psychiatric: No: Alert, Oriented Labs: CBC, BMP 02/11/18 05:50 02/11/18 07:30 INR, PTT INR 1.05 (0.82-1.09) 02/05/18 23:45 - ....Imaging Chest X-ray: Report Reviewed, Image Reviewed EKG: Report Reviewed, Image Reviewed Other: Report Reviewed, Image Reviewed (tele-nsr, sinus tach, pvcs, brief episode of PSVT vs NSVT yesterday) Assessment/Plan 87 year old woman with a h/o advanced dementia, multiple prior "mini strokes" as per pts son, COPD, bedbound, admitted from [place] for R hip fracture. Pt is now s /p surgical stabilization for pain reduction. Perioperative cardiac risk stratification -pt tolerated procedure well without cardiac complication -telemetry has shown no significant arrhythmias, only 1 short episode of likely PSVT, sinus tach, PVCs -BP remains well controlled without medications -ok to dc tele -if pt requires further PRBC transfusions, Lasix can be given if needed for volume overload if it occurs
[2018-02-11] MEDS ORDERED: FUROSEMIDE 40 MG/4 ML INJECTABLE VIAL IVPUSH ONE (17:35)
[2018-02-11 20:16] LABS: HEMOGLOBIN 9.4 GM/dL (10.7-15.3); MCH 32.5 pg (25.7-33.7); MCHC 34.7 g/dl (32.0-36.0); MEAN CELL VOLUME 93.6 fl (80-96); MEAN PLT VOLUME 7.8 fl (7.5-11.1); PLATELET COUNT 244 K/MM3 (134-434); RBC 2.88 M/mm3 (3.60-5.2); RDW 15.4 % (11.6-15.6); WHITE BLOOD COUNT 13.4 K/mm3 (4.0-10.0)
[2018-02-11] MEDS ORDERED: PT OWN MED DRAWER 7, Y5N ONE ×2 (20:59→21:22)
[2018-02-11] MEDS: DOCUSATE NA 100 MG/10 ML UNIT-DOSE CUPS PO SCH (21:22)
--- NOTE | 2018-02-11 21:44 | HOSP ---
Physical Examination Vital Signs: Vital Signs Temperature 100.2 F H 02/11/18 18:35 Pulse Rate 96 H 02/11/18 18:35 Respiratory Rate 18 02/11/18 18:35 Blood Pressure 115/56 02/11/18 18:35 O2 Sat by Pulse Oximetry (%) 96 02/11/18 10:00 Labs: CBC, BMP 02/11/18 19:30 02/11/18 07:30
[2018-02-12] MEDS: ACETAMINOPHEN 325 MG TABLET (FP) PO SCH ×3 (05:47→21:40)
[2018-02-12] MEDS ORDERED: PT OWN MED DRAWER 7, Y5N ONE ×3 (06:51→17:27)
[2018-02-12] MEDS: ALBUTEROL SO4 2.5/IPRATROPIUM 0.5 INH SOL 3 ML VIAL.NEB. NEB SCH ×4 (07:40→21:30)
[2018-02-12] MEDS ORDERED: BUDESONIDE 0.25 MG/2ML INH SUSP VIAL NEB ONE ×2 (08:50→21:44)
[2018-02-12] MEDS: BUDESONIDE 0.5 MG/2 ML INH SUSP VIAL NEB SCH ×2 (09:01→21:45)
--- NOTE | 2018-02-12 10:07 | PN ---
Progress Note, Physician Chief Complaint: appears confortable, no acute distress - Current Medication List Current Medications: Active Medications Acetaminophen (Tylenol -) 650 mg PO TID [facility] Last Admin: 02/12/18 05:47 Dose: 650 mg Albuterol/Ipratropium (Duoneb -) 1 amp NEB RQID [facility] Last Admin: 02/12/18 07:40 Dose: 1 amp Artificial Tears (Artificial Tears) 1 drop OU BID [facility] Last Admin: 02/11/18 21:19 Dose: 1 drop Budesonide (Pulmicort 0.5 Mg Nebulizer -) 1 amp NEB BID [facility] Last Admin: 02/12/18 09:01 Dose: 1 amp Cholecalciferol (Vitamin D3 -) 1,000 unit PO DAILY [facility] Last Admin: 02/11/18 10:17 Dose: 1,000 unit Docusate Sodium (Colace Liquid -) 300 mg PO HS [facility] Last Admin: 02/11/18 21:22 Dose: 300 mg Enoxaparin Sodium (Lovenox -) 40 mg SQ DAILY [facility] Last Admin: 02/11/18 10:17 Dose: 40 mg Ceftriaxone Sodium 1 gm/ (Dextrose) 50 mls @ 100 mls/hr IVPB DAILY [facility] Last Admin: 02/11/18 10:17 Dose: 100 mls/hr Nystatin (Nystop Powder -) 1 applic TP BID [facility] Last Admin: 02/11/18 21:19 Dose: 1 applic Ondansetron HCl (Zofran Injection) 4 mg IVPUSH Q6H PRN PRN Reason: NAUSEA AND/OR VOMITING Polyethylene Glycol (Miralax (For Daily Use) -) 17 gm PO DAILY [facility] Promethazine HCl (Phenergan Injection -) 12.5 mg IVPB Q6H PRN PRN Reason: NAUSEA-FOR RESCUE AFTER 15 MIN Ranitidine HCl (Zantac -) 150 mg PO DAILY [facility] Last Admin: 02/11/18 10:17 Dose: 150 mg - Objective Vital Signs: Vital Signs Temperature 98.8 F 02/12/18 06:00 Pulse Rate 94 H 02/12/18 06:00 Respiratory Rate 20 02/12/18 06:00 Blood Pressure 120/65 02/12/18 06:00 O2 Sat by Pulse Oximetry (%) 98 02/11/18 21:00 Constitutional: Yes: No Distress Cardiovascular: Yes: Regular Rate and Rhythm Respiratory: Yes: Other (no rales or rhonchi) Gastrointestinal: Yes: Soft Edema: No Labs: CBC, BMP 02/11/18 19:30 02/11/18 07:30 INR, PTT INR 1.05 (0.82-1.09) 02/05/18 23:45 Assessment/Plan Assessment/Plan 87 year old woman with a h/o advanced dementia, multiple prior "mini strokes" as per pts son, COPD, bedbound, admitted from [place] for R hip fracture. Pt is now s /p surgical stabilization for pain reduction. Post op cardiac risk stratification -pt tolerated procedure well without cardiac complication -BP remains well controlled without medications
[2018-02-12] MEDS ORDERED: DEXTROSE 5%-WATER - 50 ML IVPB ONE (10:20)
[2018-02-12] MEDS ORDERED: cefTRIAXone SODIUM 1 GM VIAL ONE (10:20)
[2018-02-12] MEDS ORDERED: morphine CARPU-JECT 2 MG/1 ML DISP.SYRIN IVPUSH PRN (10:45)
[2018-02-12] MEDS ORDERED: oxyCODONE HCL 5 MG TABLET PO PRN (10:46)
[2018-02-12] MEDS: ENOXAPARIN NA (PORCINE) 40 MG/0.4 ML DISP.SYRIN SQ SCH (10:47)
[2018-02-12] MEDS ORDERED: morphine SULFATE 4 MG/ML VIAL IVPUSH PRN ×2 (10:49→12:46)
[2018-02-12] MEDS: CHOLECALCIFEROL (VITAMIN D3) 1,000 UNIT TABLET (FP) PO SCH (12:44)
[2018-02-12] MEDS: POLYETHYLENE GLYCOL 3350 119 GM BTL PO SCH (12:44)
[2018-02-12] MEDS: CEFTRIAXONE 1 GM in DEXTROSE 5%-WATER - 50 ML IVPB SCH (12:45)
[2018-02-12] MEDS: RANITIDINE HCL 150 MG TABLET (FP) PO SCH (12:45)
--- NOTE | 2018-02-12 12:47 | PN ---
Progress Note, Physician Chief Complaint: came back from [place] noted to have groin ecchymosis urinary retention-- now urinating in diaper - Current Medication List Current Medications: Active Medications Acetaminophen (Tylenol -) 650 mg PO TID [facility] Last Admin: 02/12/18 05:47 Dose: 650 mg Albuterol/Ipratropium (Duoneb -) 1 amp NEB RQID [facility] Last Admin: 02/12/18 07:40 Dose: 1 amp Artificial Tears (Artificial Tears) 1 drop OU BID [facility] Last Admin: 02/11/18 21:19 Dose: 1 drop Budesonide (Pulmicort 0.5 Mg Nebulizer -) 1 amp NEB BID [facility] Last Admin: 02/12/18 09:01 Dose: 1 amp Cholecalciferol (Vitamin D3 -) 1,000 unit PO DAILY [facility] Last Admin: 02/12/18 12:44 Dose: 1,000 unit Docusate Sodium (Colace Liquid -) 300 mg PO HS [facility] Last Admin: 02/11/18 21:22 Dose: 300 mg Enoxaparin Sodium (Lovenox -) 40 mg SQ DAILY [facility] Last Admin: 02/12/18 10:47 Dose: 40 mg Ceftriaxone Sodium 1 gm/ (Dextrose) 50 mls @ 100 mls/hr IVPB DAILY [facility] Last Admin: 02/12/18 12:45 Dose: 100 mls/hr Morphine Sulfate (Morphine Sulfate) 1 mg IVPUSH Q4H PRN PRN Reason: PAIN LEVEL 6-10 Nystatin (Nystop Powder -) 1 applic TP BID [facility] Last Admin: 02/11/18 21:19 Dose: 1 applic Ondansetron HCl (Zofran Injection) 4 mg IVPUSH Q6H PRN PRN Reason: NAUSEA AND/OR VOMITING Oxycodone HCl (Roxicodone -) 5 mg PO Q6H [facility] Polyethylene Glycol (Miralax (For Daily Use) -) 17 gm PO DAILY [facility] Last Admin: 02/12/18 12:44 Dose: 17 gm Promethazine HCl (Phenergan Injection -) 12.5 mg IVPB Q6H PRN PRN Reason: NAUSEA-FOR RESCUE AFTER 15 MIN Ranitidine HCl (Zantac -) 150 mg PO DAILY [facility] Last Admin: 02/12/18 12:45 Dose: 150 mg - Objective Vital Signs: Vital Signs Temperature 98.6 F 02/12/18 08:05 Pulse Rate 83 02/12/18 08:05 Respiratory Rate 20 02/12/18 08:05 Blood Pressure 135/67 02/12/18 08:05 O2 Sat by Pulse Oximetry (%) 98 02/11/18 21:00 Constitutional: Yes: No Distress Cardiovascular: Yes: Regular Rate and Rhythm Respiratory: Yes: CTA Bilaterally Gastrointestinal: Yes: Normal Bowel Sounds, Soft. No: Tenderness Edema: Yes Labs: CBC, BMP 02/11/18 19:30 02/11/18 07:30 INR, PTT INR 1.05 (0.82-1.09) 02/05/18 23:45 Problem List - Problems (1) Hip fracture Code(s): S72.009A - FRACTURE OF UNSP PART OF NECK OF UNSP FEMUR, INIT (2) Anemia Code(s): D64.9 - ANEMIA, UNSPECIFIED (3) Dementia Code(s): F03.90 - UNSPECIFIED DEMENTIA WITHOUT BEHAVIORAL DISTURBANCE Assessment/Plan plan s/p PRBC sono abd pain control had bm today spoke with son
[2018-02-12] MEDS: NYSTATIN POWDER 100,000 UNITS/GM - 15 GM TOPICAL POWDER TP SCH ×2 (13:19→21:40)
[2018-02-12] MEDS: ARTIFICIAL TEARS (POLYVINYL ALCOHOL 1.4%) OPTH DROPS OU SCH ×2 (13:19→21:39)
[2018-02-12] MEDS: oxyCODONE HCL 5 MG TABLET PO PRN ×2 (13:27→21:41)
[2018-02-12] MEDS: DOCUSATE NA 100 MG/10 ML UNIT-DOSE CUPS PO SCH (23:30)
[2018-02-13] MEDS: ACETAMINOPHEN 325 MG TABLET (FP) PO SCH ×2 (06:07→13:50)
[2018-02-13] MEDS ORDERED: BUDESONIDE 0.25 MG/2ML INH SUSP VIAL NEB ONE (07:29)
[2018-02-13] MEDS: ALBUTEROL SO4 2.5/IPRATROPIUM 0.5 INH SOL 3 ML VIAL.NEB. NEB SCH ×2 (07:30→12:24)
--- NOTE | 2018-02-13 08:32 | PN ---
Progress Note (short form) - Note Progress Note: Ortho Pt seen and examined s/p right IM gamma nail. Selected Entries 02/13/18 06:34 Temperature 98.3 F Pulse Rate 98 H Respiratory 20 Rate Blood Pressure 110/64 Laboratory Tests 02/11/18 19:30 WBC 13.4 H Hgb 9.4 L D Hct 27.0 L Plt Count 244 dressing c/d/i, calf soft a/p bedrest oob if possible pain control dvt ppx d/c planning
--- NOTE | 2018-02-13 09:09 | PN ---
Progress Note, Physician Chief Complaint: eating breakfast, fed by nurse aid - Current Medication List Current Medications: Active Medications Acetaminophen (Tylenol -) 650 mg PO TID [facility] Last Admin: 02/13/18 06:07 Dose: 650 mg Albuterol/Ipratropium (Duoneb -) 1 amp NEB RQID [facility] Last Admin: 02/12/18 21:30 Dose: 1 amp Artificial Tears (Artificial Tears) 1 drop OU BID [facility] Last Admin: 02/12/18 21:39 Dose: 1 drop Budesonide (Pulmicort 0.5 Mg Nebulizer -) 1 amp NEB BID [facility] Last Admin: 02/12/18 21:45 Dose: 1 amp Cholecalciferol (Vitamin D3 -) 1,000 unit PO DAILY [facility] Last Admin: 02/12/18 12:44 Dose: 1,000 unit Docusate Sodium (Colace Liquid -) 300 mg PO HS [facility] Last Admin: 02/12/18 23:30 Dose: 300 mg Enoxaparin Sodium (Lovenox -) 40 mg SQ DAILY [facility] Last Admin: 02/12/18 10:47 Dose: 40 mg Ceftriaxone Sodium 1 gm/ (Dextrose) 50 mls @ 100 mls/hr IVPB DAILY [facility] Last Admin: 02/12/18 12:45 Dose: 100 mls/hr Morphine Sulfate (Morphine Sulfate) 1 mg IVPUSH Q4H PRN PRN Reason: PAIN LEVEL 6-10 Nystatin (Nystop Powder -) 1 applic TP BID [facility] Last Admin: 02/12/18 21:40 Dose: 1 applic Ondansetron HCl (Zofran Injection) 4 mg IVPUSH Q6H PRN PRN Reason: NAUSEA AND/OR VOMITING Oxycodone HCl (Roxicodone -) 5 mg PO Q6H PRN PRN Reason: 4-5 Last Admin: 02/12/18 21:41 Dose: 5 mg Polyethylene Glycol (Miralax (For Daily Use) -) 17 gm PO DAILY [facility] Last Admin: 02/12/18 12:44 Dose: 17 gm Promethazine HCl (Phenergan Injection -) 12.5 mg IVPB Q6H PRN PRN Reason: NAUSEA-FOR RESCUE AFTER 15 MIN Ranitidine HCl (Zantac -) 150 mg PO DAILY [facility] Last Admin: 02/12/18 12:45 Dose: 150 mg - Objective Vital Signs: Vital Signs Temperature 98.3 F 02/13/18 06:34 Pulse Rate 98 H 02/13/18 06:34 Respiratory Rate 20 02/13/18 06:34 Blood Pressure 110/64 02/13/18 06:34 O2 Sat by Pulse Oximetry (%) 98 02/12/18 21:00 Constitutional: Yes: No Distress Cardiovascular: Yes: Regular Rate and Rhythm Respiratory: Yes: CTA Bilaterally (no wheezing) Gastrointestinal: Yes: Soft Edema: No Labs: CBC, BMP 02/11/18 19:30 02/11/18 07:30 INR, PTT INR 1.05 (0.82-1.09) 02/05/18 23:45 Laboratory Tests 02/11/18 02/11/18 07:30 19:30 WBC 13.4 H Plt Count 244 Sodium 144 Potassium 3.6 Creatinine 0.3 L Assessment/Plan Assessment/Plan 87 year old woman with a h/o advanced dementia, multiple prior "mini strokes" as per pts son, COPD, bedbound, admitted from [place] for R hip fracture. Pt is now s /p surgical stabilization for pain reduction. Post op cardiac risk stratification -pt tolerated procedure well without cardiac complication -BP remains well controlled without medications, hemodynamically stable
[2018-02-13] MEDS: BUDESONIDE 0.5 MG/2 ML INH SUSP VIAL NEB SCH (09:30)
--- NOTE | 2018-02-13 09:49 | DS ---
Physical Examination Vital Signs: Vital Signs Temperature 98.3 F 02/13/18 06:34 Pulse Rate 98 H 02/13/18 06:34 Respiratory Rate 20 02/13/18 06:34 Blood Pressure 110/64 02/13/18 06:34 O2 Sat by Pulse Oximetry (%) 98 02/12/18 21:00 Constitutional: Yes: No Distress, Calm Cardiovascular: Yes: Regular Rate and Rhythm Respiratory: Yes: Diminished Gastrointestinal: Yes: Normal Bowel Sounds, Soft. No: Tenderness Edema: Yes (rt leg slight ) Labs: CBC, BMP 02/11/18 19:30 02/11/18 07:30 Discharge Summary Reason For Visit: FRACTURE OF RIGHT FEMUR Current Active Problems Anemia (Acute) Dementia (Acute) Fever (Acute) Hip fracture (Acute) Urinary tract infection (Acute) Hospital Course: admitted for fracture right hip-- underwent gamma nail placement-- 02/08 had PRBC transfused post op Seen by Cardiology prior to surgery-- cleared had urinary retention post op -- now urinating in her diaper and has bm she requires pain medication scheduled as she is unable to express she is in pain -- son wants her medicated Also she needs to be medicated prior to dressing changes or turning abd sono done for urinary retention-- 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-- does not wish to pursue this further stable for dc to [facility] stable Condition: Stable - Instructions Referrals: Barrie Paris [Primary Care Provider] - [facility]position: [facility] - Home Medications Comprehensive Discharge Medication List: Ambulatory Orders Acetaminophen [Tylenol] 1,000 mg PO BID 02/05/18 Albuterol 2.5/Ipratropium 0.5 [Duoneb -] 1 neb IH QID 02/05/18 Aspirin 81 mg PO DAILY 02/05/18 Budesonide [Pulmicort 0.5 mg Nebulizer -] 1 neb NEB BID 02/05/18 Cholecalciferol (Vitamin D3) [Vitamin D3 -] 1,000 unit PO DAILY 02/05/18 Dextran 70/Hypromellose [Artificials Tears Drops] 1 drop OU BID 02/05/18 Docusate Sodium [Colace -] 300 mg PO HS 02/05/18 Ranitidine HCl [Zantac] 150 mg PO DAILY 02/05/18 Enoxaparin [Lovenox -] 40 mg SQ DAILY #30 disp.syrin 02/13/18 oxyCODONE HCL [Roxicodone -] 5 mg PO Q4H PRN 7 Days tablet MDD 4 02/13/18
[2018-02-13] MEDS ORDERED: cefTRIAXone SODIUM 1 GM VIAL ONE (10:43)
[2018-02-13] MEDS ORDERED: DEXTROSE 5%-WATER - 50 ML IVPB ONE (10:44)
[2018-02-13] MEDS: ENOXAPARIN NA (PORCINE) 40 MG/0.4 ML DISP.SYRIN SQ SCH (10:53)
[2018-02-13] MEDS: CHOLECALCIFEROL (VITAMIN D3) 1,000 UNIT TABLET (FP) PO SCH (10:53)
[2018-02-13] MEDS: oxyCODONE HCL 5 MG TABLET PO PRN (10:53)
[2018-02-13] MEDS: CEFTRIAXONE 1 GM in DEXTROSE 5%-WATER - 50 ML IVPB SCH (10:53)
[2018-02-13] MEDS: RANITIDINE HCL 150 MG TABLET (FP) PO SCH (10:53)
[2018-02-13] MEDS: ARTIFICIAL TEARS (POLYVINYL ALCOHOL 1.4%) OPTH DROPS OU SCH (10:54)
[2018-02-13] MEDS: NYSTATIN POWDER 100,000 UNITS/GM - 15 GM TOPICAL POWDER TP SCH (10:54)
[2018-02-13] MEDS: POLYETHYLENE GLYCOL 3350 119 GM BTL PO SCH (10:55)
[2018-02-13 16:24] VITALS: BP 115/58; PULSE 85; TEMP 99
--- NOTE | 2018-02-14 13:22 | PN ---
Progress Note (short form) - Note Progress Note: Pt had acute blood loss anemia with h/h of 6.6/19.4.
== END 2018-02-13 14:13 | DRG 481 ==
LOC: JER 23:09 → JERBED 02-06 00:42 → J6S 02-06 03:56 → J4S 02-08 14:35 → J7W 02-12 07:47 → J8W 02-12 07:50
PROVIDERS: ADMIT Internal Medicine; ATTEND Internal Medicine
PROC: 0QS604Z Reposition Right Upper Femur with Internal Fixation Device, Open Approach (ICD-10-PCS; principal; 2018-02-08 09:30)
PROC: 30233N1 Transfusion of Nonautologous Red Blood Cells into Peripheral Vein, Percutaneous Approach (ICD-10-PCS; 2018-02-10)
DX: S72.21XA Displaced subtrochanteric fracture of right femur, initial encounter for closed fracture (principal); E87.2 Acidosis; N39.0 Urinary tract infection, site not specified; I47.1 Supraventricular tachycardia; K86.2 Cyst of pancreas; D62 Acute posthemorrhagic anemia; F03.90 Unspecified dementia, unspecified severity, without behavioral disturbance, psychotic disturbance, mood disturbance, and anxiety; E78.5 Hyperlipidemia, unspecified; G30.9 Alzheimer's disease, unspecified; F02.80 Dementia in other diseases classified elsewhere, unspecified severity, without behavioral disturbance, psychotic disturbance, mood disturbance, and anxiety; I10 Essential (primary) hypertension; D64.9 Anemia, unspecified; J44.9 Chronic obstructive pulmonary disease, unspecified; I73.9 Peripheral vascular disease, unspecified; K21.9 Gastro-esophageal reflux disease without esophagitis; G20 Parkinson's disease; M81.0 Age-related osteoporosis without current pathological fracture; D72.829 Elevated white blood cell count, unspecified; R50.9 Fever, unspecified; R33.9 Retention of urine, unspecified; W18.30XA Fall on same level, unspecified, initial encounter; Z74.01 Bed confinement status; Z86.73 Personal history of transient ischemic attack (TIA), and cerebral infarction without residual deficits; Z96.653 Presence of artificial knee joint, bilateral; Y92.098 Other place in other non-institutional residence as the place of occurrence of the external cause
CPT/HCPCS: 36415; 36430; 71045-TC-FY; 72170-TC-FY; 73523-TC-FY; 73552-TC-RT-FY; 76000-TC-FY; 76700-TC; 76856-TC; 80048; 80053; 81003; 83605; 83735; 84100; 85025; 85027; 85610; 86850; 86900; 86901; 86922; 87040; 87086; 93005; 93010; 93306-TC; 94640; 94760; 97161-GP; 99284-25; J1644; J7030; P9038; P9058

== ENCOUNTER 2020-05-15 14:27 | Inpatient (IN) | payer OTHER ==
[2020-05-15 14:46] VITALS: BMI 25.1
[2020-05-15 15:56] LABS: BASO % 0.2 % (0-2.0); HEMOGLOBIN 13.1 GM/dL (10.7-15.3); LYMPH % 2.2 % (8-40); MCH 30.8 pg (25.7-33.7); MCHC 31.9 g/dl (32.0-36.0); MEAN CELL VOLUME 96.4 fl (80-96); MEAN PLT VOLUME 8.1 fl (7.5-11.1); MONO % 6.8 % (3.8-10.2); NEUT % 90.8 % (42.8-82.8); PLATELET COUNT 244 K/MM3 (134-434); RBC 4.26 M/mm3 (3.60-5.2); RDW 16.4 % (11.6-15.6); WHITE BLOOD COUNT 17.3 K/mm3 (4.0-10.0)
[2020-05-15 15:58] LABS: EPI CELLS 3 /uL (0-25.1); HYALINE CASTS 4 /uL (0-3.1); URINE APPEARANCE CLOUDY; URINE BILIRUBIN NEGATIVE (NEGATIVE); URINE COLOR YELLOW; URINE GLUCOSE (UA) NEGATIVE (NEGATIVE); URINE KETONE NEGATIVE (NEGATIVE); URINE LEUK ESTERASE 2+ (NEGATIVE); URINE NITRITE NEGATIVE (NEGATIVE); URINE PROTEIN NEGATIVE (NEGATIVE); URINE RBC 16 /uL (0-23.9); URINE UROBILINOGEN 0.2 mg/dL (0.2-1.0); URINE WBC 165 /uL (0-25.8)
[2020-05-15 16:15] LABS: ALBUMIN 2.7 g/dl (3.4-5.0); BILIRUBIN,TOTAL 0.4 mg/dL (0.2-1); BLOOD UREA NITROGEN 16.3 mg/dL (7-18); CALCIUM 9.1 mg/dL (8.5-10.1); CREATININE 0.7 mg/dL (0.55-1.3); MAGNESIUM 2.2 mg/dL (1.8-2.4); POTASSIUM 4.1 mmol/L (3.5-5.1); TOT PROT 6.2 g/dl (6.4-8.2)
[2020-05-15] MEDS ORDERED: CEFTRIAXONE 1,000 MG in DEXTROSE 5%-WATER - 50 ML IVPB ONE (16:16)
[2020-05-15] MEDS ORDERED: SODIUM CHLORIDE 500 ML IV STA (16:25)
[2020-05-15] MEDS ORDERED: CEFTRIAXONE 1 GM/50 ML BAG ONE (16:32)
[2020-05-15] MEDS ORDERED: VANCOMYCIN 1 GM in D5W (PRE-DOCKED) 1,000 MG/250 ML IVPB ONE (21:31)
[2020-05-15] MEDS ORDERED: ALBUTEROL SO4 HFA INHALER IH PRN (21:40)
[2020-05-15] MEDS ORDERED: ALBUTEROL SO4 2.5/IPRATROPIUM 0.5 INH SOL 3 ML VIAL.NEB. NEB PRN (22:07)
[2020-05-15] MEDS ORDERED: VANCOMYCIN 1 GRAM (PRE-DOCKED) 1,000 MG/250 ML BAG IVPB ONE (23:15)
[2020-05-15] MEDS: ARTIFICIAL TEARS (POLYVINYL ALCOHOL) OPTH DROPS OU PRN (23:41)
[2020-05-16 07:20] LABS: BASO % 0.3 % (0-2.0); EOS % 1.4 % (0-4.5); HEMATOCRIT 37.7 % (32.4-45.2); LYMPH % 11.4 % (8-40); MCHC 31.9 g/dl (32.0-36.0); MEAN CELL VOLUME 97.1 fl (80-96); MEAN PLT VOLUME 7.9 fl (7.5-11.1); MONO % 10.2 % (3.8-10.2); NEUT % 76.7 % (42.8-82.8); PLATELET COUNT 211 K/MM3 (134-434); RBC 3.89 M/mm3 (3.60-5.2); WHITE BLOOD COUNT 13.7 K/mm3 (4.0-10.0)
[2020-05-16 07:46] LABS: ALBUMIN 2.6 g/dl (3.4-5.0); BILIRUBIN,TOTAL 0.7 mg/dL (0.2-1); BLOOD UREA NITROGEN 13.2 mg/dL (7-18); CREATININE 0.5 mg/dL (0.55-1.3); POTASSIUM 3.6 mmol/L (3.5-5.1); TOT PROT 5.9 g/dl (6.4-8.2)
[2020-05-16] MEDS ORDERED: DEXTROSE 5%-WATER - 50 ML IVPB ONE (08:04)
[2020-05-16] MEDS ORDERED: cefTRIAXone SODIUM 1 GM VIAL ONE (08:04)
[2020-05-16] MEDS: CEFTRIAXONE 1 GM in DEXTROSE 5%-WATER - 50 ML IVPB SCH (09:14)
[2020-05-16] MEDS: HEPARIN NA (PORCINE) 5,000 UNITS/ML 1ML VIAL SQ SCH ×2 (09:15→22:06)
[2020-05-16] MEDS: ARTIFICIAL TEARS (POLYVINYL ALCOHOL) OPTH DROPS OU PRN (09:15)
[2020-05-16] MEDS: PANTOPRAZOLE SODIUM 40 MG VIAL IVPUSH SCH (09:15)
[2020-05-16] MEDS ORDERED: VANCOMYCIN 1,000 MG in DEXTROSE 5%-WATER - 250 ML IVPB SCH (11:00)
[2020-05-17 07:43] LABS: BASO % 0.5 % (0-2.0); EOS % 2.3 % (0-4.5); HEMATOCRIT 37.9 % (32.4-45.2); HEMOGLOBIN 12.3 GM/dL (10.7-15.3); LYMPH % 13.6 % (8-40); MCH 31.1 pg (25.7-33.7); MCHC 32.5 g/dl (32.0-36.0); MEAN CELL VOLUME 95.6 fl (80-96); MEAN PLT VOLUME 7.8 fl (7.5-11.1); MONO % 13.5 % (3.8-10.2); NEUT % 70.1 % (42.8-82.8); PLATELET COUNT 200 K/MM3 (134-434); RBC 3.96 M/mm3 (3.60-5.2); RDW 15.7 % (11.6-15.6); WHITE BLOOD COUNT 10.1 K/mm3 (4.0-10.0)
[2020-05-17] MEDS ORDERED: cefTRIAXone SODIUM 1 GM VIAL ONE (08:55)
[2020-05-17] MEDS ORDERED: DEXTROSE 5%-WATER - 50 ML IVPB ONE (08:56)
[2020-05-17] MEDS: HEPARIN NA (PORCINE) 5,000 UNITS/ML 1ML VIAL SQ SCH ×2 (10:11→21:42)
[2020-05-17] MEDS: CEFTRIAXONE 1 GM in DEXTROSE 5%-WATER - 50 ML IVPB SCH (10:11)
[2020-05-17] MEDS: PANTOPRAZOLE SODIUM 40 MG VIAL IVPUSH SCH (10:11)
[2020-05-17] MEDS: NITROFURANTOIN MACROCRYSTAL 50 MG CAPSULE (FP) PO SCH ×2 (12:51→17:16)
[2020-05-18] MEDS ORDERED: PT OWN MED DRAWER 7, Y5N ONE ×2 (01:11→06:21)
[2020-05-18] MEDS: NITROFURANTOIN MACROCRYSTAL 50 MG CAPSULE (FP) PO SCH ×2 (01:14→06:38)
[2020-05-18 08:09] VITALS: TEMP 97.8
[2020-05-18] MEDS: HEPARIN NA (PORCINE) 5,000 UNITS/ML 1ML VIAL SQ SCH (09:20)
[2020-05-18] MEDS: PANTOPRAZOLE SODIUM 40 MG VIAL IVPUSH SCH (09:21)
[2020-05-18] MEDS: ARTIFICIAL TEARS (POLYVINYL ALCOHOL) OPTH DROPS OU PRN (09:31)
[2020-05-18 13:06] VITALS: BP 124/50; PULSE 78
== END 2020-05-18 13:38 | DRG 871 ==
LOC: JER 14:27 → JERBED 16:16 → J4W 20:45
PROVIDERS: ADMIT Internal Medicine; ATTEND Internal Medicine
DX: A41.51 Sepsis due to Escherichia coli [E. coli] (principal); G93.41 Metabolic encephalopathy; Z16.12 Extended spectrum beta lactamase (ESBL) resistance; N39.0 Urinary tract infection, site not specified; G30.9 Alzheimer's disease, unspecified; F02.80 Dementia in other diseases classified elsewhere, unspecified severity, without behavioral disturbance, psychotic disturbance, mood disturbance, and anxiety; G20 Parkinson's disease; D64.9 Anemia, unspecified; R73.9 Hyperglycemia, unspecified; I10 Essential (primary) hypertension; D72.829 Elevated white blood cell count, unspecified; E78.5 Hyperlipidemia, unspecified; R56.9 Unspecified convulsions; I73.9 Peripheral vascular disease, unspecified; R41.82 Altered mental status, unspecified; J44.9 Chronic obstructive pulmonary disease, unspecified; Z86.19 Personal history of other infectious and parasitic diseases; Z11.59 Encounter for screening for other viral diseases; Z86.73 Personal history of transient ischemic attack (TIA), and cerebral infarction without residual deficits
CPT/HCPCS: 36415; 70450-TC; 71045-TC-FY; 80053; 81003; 82140; 82962; 83036; 83735; 85025; 87040; 87086; 87186; 93005; 93010; 99285-25; J1644; U0003